=== PATIENT | male | born 1990 | race Two or more races ===

== ENCOUNTER 2018-04-28 18:28 | Inpatient (IN) | payer SELFPAY ==
[~2018-04-28] VITALS: Ht 170.2 cm; Wt 51.4 kg
[2018-04-28] MEDS ORDERED: ONDANSETRON PF 4 MG/2 ML VIAL. IV ONE (19:30)
[2018-04-28] MEDS ORDERED: DEXAMETHASONE SOD PHOS 20 MG/5 ML VIAL. IV ONE (19:30)
[2018-04-28] MEDS ORDERED: FAMOTIDINE 20 MG/2 ML VIAL IVP ONE (19:30)
[2018-04-28] MEDS ORDERED: KETOROLAC 30 MG/ML VIAL. IV ONE (19:30)
[2018-04-28 19:39] LABS: BASO % 0 % (0-3); EOS % 0 % (0-3); HEMOGLOBIN 14.9 g/dL (13.0-17.5); LYMPH # 1.9 x10^3/uL (1.0-4.8); LYMPH % 14 % (24-48); MEAN CORPUSCULAR HEMOGLOBIN 28 pg (25-35); MEAN CORPUSCULAR HGB CONC 34 g/dL (31-37); MEAN CORPUSCULAR VOLUME 83 fL (79-100); MONO # 1.2 x10^3/uL (0.0-1.1); MONO % 9 % (0-9); NEUT # 10.2 x10^3uL (1.8-7.7); NEUT % 77 % (31-73); PLATELET COUNT 208 x10^3/uL (140-400); RED BLOOD COUNT 5.32 x10^6/uL (4.30-5.70); RED CELL DISTRIBUTION WIDTH 12.6 % (11.5-14.5); WHITE BLOOD COUNT 13.3 x10^3/uL (4.0-11.0)
[2018-04-28 19:49] LABS: CALCIUM 9.5 mg/dL (8.5-10.1); CREATININE 1.3 mg/dL (0.7-1.3); GFR 67.3; POTASSIUM 3.4 mmol/L (3.5-5.1)
[2018-04-28 19:54] LABS: ALBUMIN 4.8 g/dL (3.4-5.0); ALBUMIN/GLOBULIN RATIO 1.2 (1.0-1.7); MAGNESIUM 2.3 mg/dL (1.8-2.4); TOTAL BILIRUBIN 1.3 mg/dL (0.2-1.0); TOTAL PROTEIN 8.9 g/dL (6.4-8.2)
[2018-04-28] MEDS ORDERED: IOHEXOL 300 MG/ML 100ML VIAL. IV ONE (20:15)
[2018-04-28] MEDS ORDERED: CONTRAST GIVEN. MC PRN (20:15)
[2018-04-28 20:34] LABS: BILIRUBIN,URINE SMALL (NEG); CLARITY,URINE TURBID; COLOR,URINE AMBER; NITRITE,URINE NEGATIVE (NEG); PH,URINE 6.5; PROTEIN,URINE 30 mg/dL (NEG-TRACE)
[2018-04-28 20:48] LABS: AMORPHOUS SEDIMENT,UR PRESENT /HPF; BACTERIA,URINE FEW /HPF (0-FEW); HYALINE CASTS, URINE OCCASIONAL /HPF; RBC,URINE 0 /HPF (0-2); SQUAMOUS EPITHELIAL CELL,UR OCC /LPF
--- NOTE | 2018-04-28 21:49 | RAD ---
Examination: CT HEAD WO CONTRAST History: headache, prior sent Comparison/Correlation: 03/11/2012 CT head without contrast Findings: Axial images of the head were obtained without contrast. The topograms unremarkable. Ventricles are normal size. No intracranial hemorrhage, shift, or mass effect. Globes and optic nerves are unremarkable. Visualized paranasal sinuses are unremarkable. Deformity of the right mastoid air cells is noted and may be developmental. Soft tissue gas at the posterior maxillofacial region about the pharynx is notable. 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 No intracranial hemorrhage. On 04/28/2018 at 9:45 PM, results reported to Dr. Delatorre of the emergency Department. Electronically signed by: Taz Majano MD (04/28/2018 9:46 PM) [facility]
--- NOTE | 2018-04-28 21:49 | RAD ---
Examination: CT ABD PELV W/ IV CONTRST ONLY History: epigastric pain with vomiting x1day, Omni 300 75ml
no priors Comparison/Correlation: None Findings: Axial images of the abdomen and pelvis were obtained following 75 cc Omnipaque 300 IV. Sagittal and coronal reformatted images were provided. Minimal gas in the posterior right pericardium appear to be present. Minimal gas involving the posterior pleural spaces appear to be present as well. Interstitial thickening about the mediastinum at the basilar aspect anteriorly noted. Minimal gas is noted involving the right lateral pleural space on a few consecutive images. Liver, spleen, pancreas, and adrenal glands are normal. Kidneys are unremarkable. Appendix is normal no bowel obstruction. Moderate quantity of stool in the colon. Urinary bladder is mostly decompressed. Bony structures are unremarkable. Minimal mesenteric fat is noted. Inferior vena cava is somewhat decompressed. Impression: Minimal pneumo mediastinum and very minimal bilateral pneumothoraces. 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 Consider CT chest for more complete assessment. On 04/28/2018 at 9:45 PM, results discussed with Dr. Delatorre of the emergency Department. Electronically signed by: Taz Majano MD (04/28/2018 9:45 PM) [facility]
--- NOTE | 2018-04-28 23:07 | RAD ---
CT chest without contrast HISTORY: Vomiting and epigastric pain Axial helical images of the chest were obtained without contrast. There is moderate pneumomediastinum. There are tiny pneumothoraces bilaterally. There is moderate chest wall subcutaneous emphysema on the left and there is subcutaneous M0 bilaterally the neck. The lungs are otherwise clear. There is no lymphadenopathy. IMPRESSION: Moderate pneumomediastinum and tiny bilateral pneumothoraces. PQRS Compliance Statement: One or more of the following individualized dose reduction techniques were utilized for this examination: 1. Automated exposure control 2. Adjustment of the mA and/or kV according to patient size 3. Use of iterative reconstruction technique Electronically signed by: Fredrick Alfaro III, MD (04/28/2018 11:03 PM) [facility]
--- NOTE | 2018-04-28 23:41 | PHYS DOC ---
Past Medical History Past Medical History: No Pertinent History Past Surgical History: No Surgical History Alcohol Use: Occasionally Drug Use: None Adult General Chief Complaint Chief Complaint: NAUSEA/VOMITING/DIARRHA HPI HPI Patient is a 27 year old [f__sex] who presents with [] Review of Systems Review of Systems Constitutional: Denies fever or chills [] Eyes: Denies change in visual acuity, redness, or eye pain [] HENT: Denies nasal congestion or sore throat [] Respiratory: Denies cough or shortness of breath [] Cardiovascular: No additional information not addressed in HPI [] GI: Denies abdominal pain, nausea, vomiting, bloody stools or diarrhea [] : Denies dysuria or hematuria [] Musculoskeletal: Denies back pain or joint pain [] Integument: Denies rash or skin lesions [] Neurologic: Denies headache, focal weakness or sensory changes [] Endocrine: Denies polyuria or polydipsia [] All other systems were reviewed and found to be within normal limits, except as documented in this note. Current Medications Current Medications Current Medications Medications (Trade) Dose Ordered Sig/Juanis Start Time Stop Time Status Last Admin Dose Admin Dexamethasone Sodium Phosphate (Decadron) 10 mg 1X ONCE 04/28/18 19:30 04/28/18 19:31 DC 04/28/18 19:36 10 MG Famotidine (Pepcid Vial) 20 mg 1X ONCE 04/28/18 19:30 04/28/18 19:31 DC 04/28/18 19:38 20 MG Info (CONTRAST GIVEN -- Rx MONITORING) 1 each PRN DAILY PRN 04/28/18 20:15 04/30/18 20:14 Iohexol (Omnipaque 300 Mg/ml) 75 ml 1X ONCE 04/28/18 20:15 04/28/18 20:16 DC 04/28/18 20:15 75 ML Ketorolac Tromethamine (Toradol 30mg Vial) 15 mg 1X ONCE 04/28/18 19:30 04/28/18 19:31 DC 04/28/18 19:36 15 MG Ondansetron HCl (Zofran) 4 mg 1X ONCE 04/28/18 19:30 04/28/18 19:31 DC 04/28/18 19:33 4 MG Allergies Allergies Allergies Coded Allergies Type Severity Reaction Last Updated Verified No Known Drug Allergies 04/28/18 No Physical Exam Physical Exam Constitutional: Well developed, well nourished, no acute distress, non-toxic appearance. [] HENT: Normocephalic, atraumatic, bilateral external ears normal, oropharynx moist, no oral exudates, nose normal. [] Eyes: PERRLA, EOMI, conjunctiva normal, no discharge. [] Neck: Normal range of motion, no tenderness, supple, no stridor. [] Cardiovascular:Heart rate regular rhythm, no murmur [] Lungs & Thorax: Bilateral breath sounds clear to auscultation [] Abdomen: Bowel sounds normal, soft, no tenderness, no masses, no pulsatile masses. [] Skin: Warm, dry, no erythema, no rash. [] Back: No tenderness, no CVA tenderness. [] Extremities: No tenderness, no cyanosis, no clubbing, ROM intact, no edema. [] Neurologic: Alert and oriented X 3, normal motor function, normal sensory function, no focal deficits noted. [] Psychologic: Affect normal, judgement normal, mood normal. [] Current Patient Data Vital Signs Vital Signs Date Time Temp Pulse Resp B/P (MAP) Pulse Ox O2 Delivery O2 Flow Rate FiO2 04/28/18 19:02 126/90 (102) 04/28/18 18:35 98.2 83 17 100 Room Air 98.2 Lab Values Laboratory Tests Test 04/28/18 18:54 04/28/18 20:23 White Blood Count 13.3 x10^3/uL (4.0-11.0) H Red Blood Count 5.32 x10^6/uL (4.30-5.70) Hemoglobin 14.9 g/dL (13.0-17.5) Hematocrit 44.0 % (39.0-53.0) Mean Corpuscular Volume 83 fL (79-100) Mean Corpuscular Hemoglobin 28 pg (25-35) Mean Corpuscular Hemoglobin Concent 34 g/dL (31-37) Red Cell Distribution Width 12.6 % (11.5-14.5) Platelet Count 208 x10^3/uL (140-400) Neutrophils (%) (Auto) 77 % (31-73) H Lymphocytes (%) (Auto) 14 % (24-48) L Monocytes (%) (Auto) 9 % (0-9) Eosinophils (%) (Auto) 0 % (0-3) Basophils (%) (Auto) 0 % (0-3) Neutrophils # (Auto) 10.2 x10^3uL (1.8-7.7) H Lymphocytes # (Auto) 1.9 x10^3/uL (1.0-4.8) Monocytes # (Auto) 1.2 x10^3/uL (0.0-1.1) H Eosinophils # (Auto) 0.0 x10^3/uL (0.0-0.7) Basophils # (Auto) 0.0 x10^3/uL (0.0-0.2) Sodium Level 130 mmol/L (136-145) L Potassium Level 3.4 mmol/L (3.5-5.1) L Chloride Level 93 mmol/L (98-107) L Carbon Dioxide Level 25 mmol/L (21-32) Anion Gap 12 (6-14) Blood Urea Nitrogen 23 mg/dL (8-26) Creatinine 1.3 mg/dL (0.7-1.3) Estimated GFR (Cockcroft-Gault) 67.3 BUN/Creatinine Ratio 18 (6-20) Glucose Level 156 mg/dL (70-99) H Calcium Level 9.5 mg/dL (8.5-10.1) Magnesium Level 2.3 mg/dL (1.8-2.4) Total Bilirubin 1.3 mg/dL (0.2-1.0) H Aspartate Amino Transferase (AST) 68 U/L (15-37) H Alanine Aminotransferase (ALT) 38 U/L (16-63) Alkaline Phosphatase 74 U/L (46-116) Total Protein 8.9 g/dL (6.4-8.2) H Albumin 4.8 g/dL (3.4-5.0) Albumin/Globulin Ratio 1.2 (1.0-1.7) Lipase 95 U/L (73-393) Urine Collection Type Void Urine Color Marie Urine Clarity Turbid Urine pH 6.5 Urine Specific [place] 1.020 Urine Protein 30 mg/dL (NEG-TRACE) Urine Glucose (UA) Negative mg/dL (NEG) Urine Ketones (Stick) Negative mg/dL (NEG) Urine Blood Trace (NEG) Urine Nitrite Negative (NEG) Urine Bilirubin Small (NEG) Urine Urobilinogen Dipstick 2.0 mg/dL (0.2 mg/dL) Urine Leukocyte Esterase Trace (NEG) Urine RBC 0 /HPF (0-2) Urine WBC 1-4 /HPF (0-4) Urine Squamous Epithelial Cells Occ /LPF Urine Amorphous Sediment Present /HPF Urine Bacteria Few /HPF (0-FEW) Urine Hyaline Casts Occasional /HPF Urine Mucus Slight /LPF Laboratory Tests 04/28/18 18:54 Laboratory Tests 04/28/18 18:54 EKG EKG [] Radiology/Procedures Radiology/Procedures [] Course & Med Decision Making Course & Med Decision Making Pertinent Labs and Imaging studies reviewed. (See chart for details) [] Dragon Disclaimer Dragon Disclaimer This electronic medical record was generated, in whole or in part, using a voice recognition dictation system. Departure Departure Impression: Primary Impression: Pneumomediastinum Additional Impressions: Headache Nausea and vomiting Disposition: ADMITTED INPATIENT Admitting Physician: Betty Razo Condition: GUARDED Referrals: NO PCP (PCP) Problem Qualifiers Additional Impressions: Headache Headache type: unspecified Headache chronicity pattern: unspecified pattern Intractability: intractable Qualified Codes: R51 - Headache Nausea and vomiting Vomiting type: unspecified Vomiting Intractability: unspecified Qualified Codes: R11.2 - Nausea with vomiting, unspecified EASTON REYES DO Apr 28, 2018 23:41
[2018-04-28] MEDS ORDERED: fentaNYL PF VIAL 100 MCG/2 ML VIAL IV PRN (23:45)
[2018-04-28] MEDS ORDERED: ONDANSETRON PF 4 MG/2 ML VIAL. IV PRN (23:45)
[2018-04-29] VITALS (7 sets, daily range): BP systolic 104–117; BP diastolic 68–85
[2018-04-29] MEDS ORDERED: PIPERACILLIN/TAZOBACTAM 4.5 GM in IV NORMAL SALINE 100ML 100 ML IV ONE (00:30)
--- NOTE | 2018-04-29 01:54 | EKG ---
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
[2018-04-29] MEDS ORDERED: IOHEXOL 300 MG/ML 100ML VIAL. PR ONE (08:00)
[2018-04-29] MEDS ORDERED: CONTRAST GIVEN. MC PRN (08:15)
--- NOTE | 2018-04-29 08:31 | PDOC2 ---
CONSULT Date of Consult Date of Consult DATE: 04/29/18 TIME: 08:22 Reason for Consult Reason for Consult: Pneumomediastinum Referring Physician Referring Physician: ER Identification/Chief Complaint Chief Complaint Vomiting Source Source: Chart review, Patient History of Present Illness Reason for Visit: Patient is a 27 year old male, who presents with nausea/vomiting. CT abdo in the ER showed pneumomediastinum, which was confirmed on subsequent CT chest. There is no pleural effusion. He denies any pain or SOB. He is normotensive and in SR 70s. Past Medical History Cardiovascular: No pertinent hx Pulmonary: No pertinent hx Heme/Onc: No pertinent hx Hepatobiliary: No pertinent hx Psych: No pertinent hx Rheumatologic: No pertinent hx Infectious disease: No pertinent hx ENT: No pertinent hx Endocrine: No pertinent hx Dermatology: No pertinent hx Past Surgical History Past Surgical History: No pertinent history Family History Family History: No Significant Social History No ALCOHOL: none Lives: with Family Current Problem List Problem List Problems Medical Problems: (1) Headache Status: Acute (2) Nausea and vomiting Status: Acute (3) Pneumomediastinum Status: Acute Current Medications Current Medications Current Medications Ondansetron HCl (Zofran) 4 mg 1X ONCE IV Last administered on 04/28/18at 19:33 ; Start 04/28/18 at 19:30; Stop 04/28/18 at 19:31; Status DC Famotidine (Pepcid Vial) 20 mg 1X ONCE IVP Last administered on 04/28/18at 19: 38; Start 04/28/18 at 19:30; Stop 04/28/18 at 19:31; Status DC Ketorolac Tromethamine (Toradol 30mg Vial) 15 mg 1X ONCE IV Last administered on 04/28/18at 19:36; Start 04/28/18 at 19:30; Stop 04/28/18 at 19:31; Status DC Dexamethasone Sodium Phosphate (Decadron) 10 mg 1X ONCE IV Last administered on 04/28/18at 19:36; Start 04/28/18 at 19:30; Stop 04/28/18 at 19:31; Status DC Iohexol (Omnipaque 300 Mg/ml) 75 ml 1X ONCE IV Last administered on at 20:15; Start 04/28/18 at 20:15; Stop 04/28/18 at 20:16; Status DC Info (CONTRAST GIVEN -- Rx MONITORING) 1 each PRN DAILY PRN MC SEE COMMENTS; Start 04/28/18 at 20:15; Stop 04/30/18 at 20:14 Ondansetron HCl (Zofran) 4 mg PRN Q8HRS PRN IV NAUSEA/VOMITING 1ST CHOICE; Start 04/28/18 at 23:45; Stop 04/29/18 at 23:44 Fentanyl Citrate (Fentanyl 2ml Vial) 50 mcg PRN Q2HR PRN IV SEVERE PAIN Last administered on 04/29/18at 00:56; Start 04/28/18 at 23:45; Stop 04/29/18 at 23 :44 Piperacillin Sod/ Tazobactam Sod 4.5 gm/Sodium Chloride 100 ml @ 200 mls/hr 1X ONCE IV Last administered on 04/29/18at 00:34; Start 04/29/18 at 00:30; Stop 04/29/18 at 00:59; Status DC Influenza Virus Vaccine (Afluria Trivalent [id number] Syringe) 0.5 ml ONCE ONCE VAX IM ; Start 04/29/18 at 09:00; Stop 04/29/18 at 09:01 Iohexol (Omnipaque 300 Mg/ml) 700 ml 1X ONCE VT ; Start 04/29/18 at 08:00; Stop 04/29/18 at 08:03; Status DC Info (CONTRAST GIVEN -- Rx MONITORING) 1 each PRN DAILY PRN MC SEE COMMENTS; Start 04/29/18 at 08:15; Stop 05/01/18 at 08:14 Allergies Allergies: Coded Allergies: No Known Drug Allergies (Unverified , 04/28/18) ROS General: No: Chills, Night Sweats, Fatigue, Malaise, Appetite PSYCHOLOGICAL ROS: No: Anxiety, Behavioral Disorder, Concentration difficultie , Decreased libido, Depression, Disorientation, Hallucinations, Hostility, Irritablity, Memory difficulties, Mood Swings, Obsessive thoughts, Physical abuse, Sexual abuse, Sleep disturbances, Suicidal ideation Eyes: No Blurry vision, No Decreased vision, No Double vision, No Dry eyes, No Excessive tearing, No Eye Pain, No Itchy Eyes, No Loss of vision, No Photophobia , No Scotomata, No Uses contacts, No Uses glasses HEENT: No: Heacaches, Visual Changes, Hearing change, Nasal congestion, Nasal discharge, Oral lesions, Sinus pain, Sore Throat, Epistaxis, Sneezing, Snoring, Tinnitus, Vertigo, Vocal changes ALLERGY AND IMMUNOLOGY: No: Hives, Insect Bite Sensitivity, Itchy/Watery Eyes, Nasal Congestion, Post Nasal Drip, Seasonal Allergies Hematological and Lymphatic: No: Bleeding Problems, Blood Clots, Blood Transfusions, Brusing, Night Sweats, Pallor, Swollen Lymph Nodes ENDOCRINE: No: Breast Changes, Galactorrhea, Hair Pattern Changes, Hot Flashes , Malaise/lethargy, Mood Swings, Palpitations, Polydipsia/polyuria, Skin Changes , Temperature Intolerance, Unexpected Weight Changes Breast: Other Respiratory: No: Cough, Hemoptysis, Orthopnea, Pleuritic Pain, Shortness of breath, SOB with excertion, Sputum Changes, Stridor, Tachypnea, Wheezing Cardiovascular: No Chest Pain, No Palpitations, No Orthopnea, No Paroxysmal Noc. Dyspnea, No Edema, No Lt Headedness Gastrointestinal: Yes Nausea, Yes Vomiting, Yes Diarrhea; No Abdominal Pain, No Constipation, No Melena, No Hematochezia Genitourinary: No Dysuria, No Frequency, No Incontinence, No Hematuria, No Retention, No Discharge, No Urgency, No Pain, No Flank Pain Musculoskeletal: No Gait Disturbance, No Joint Pain, No Joint Stiffness, No Joint Swelling, No Muscle Pain, No Muscular Weakness, No Pain In:, No Swelling In: Neurological: No Behavorial Changes, No Bowel/Bladder ControlChng, No Confusion , No Dizziness, No Gait Disturbance, No Headaches, No Impaired Coord/balance, No Memory Loss, No Numbness/Tingling, No Seizures, No Speech Problems, No Tremors, No Visual Changes, No Weakness Skin: No Dry Skin, No Eczema, No Hair Changes, No Lumps, No Mole Changes, No Mottling, No Nail Changes, No Pruritus, No Rash, No Skin Lesion Changes, No Acne Physical Exam General: Alert, Oriented X3, No acute distress HEENT: Atraumatic, PERRLA Lungs: Clear to auscultation Heart: Regular rate, Normal S1, Normal S2 Abdomen: Soft, No tenderness Extremities: No edema Skin: No significant lesion Neuro: Normal gait, Normal speech, Strength at 5/5 X4 ext, Normal tone, Sensation intact, Cranial nerves 3-12 NL, Reflexes 2+ Psych/Mental Status: Mental status NL MUSCULOSKELETAL: No deformity Vitals VITALS Vital Signs Date Time Temp Pulse Resp B/P (MAP) Pulse Ox O2 Delivery O2 Flow Rate FiO2 04/29/18 07:00 98.4 91 18 112/71 (85) 96 Room Air 98.4 Labs Labs Laboratory Tests Test 04/28/18 18:54 04/28/18 20:23 04/29/18 03:10 White Blood Count 13.3 x10^3/uL (4.0-11.0) Red Blood Count 5.32 x10^6/uL (4.30-5.70) Hemoglobin 14.9 g/dL (13.0-17.5) Hematocrit 44.0 % (39.0-53.0) Mean Corpuscular Volume 83 fL (79-100) Mean Corpuscular Hemoglobin 28 pg (25-35) Mean Corpuscular Hemoglobin Concent 34 g/dL (31-37) Red Cell Distribution Width 12.6 % (11.5-14.5) Platelet Count 208 x10^3/uL (140-400) Neutrophils (%) (Auto) 77 % (31-73) Lymphocytes (%) (Auto) 14 % (24-48) Monocytes (%) (Auto) 9 % (0-9) Eosinophils (%) (Auto) 0 % (0-3) Basophils (%) (Auto) 0 % (0-3) Neutrophils # (Auto) 10.2 x10^3uL (1.8-7.7) Lymphocytes # (Auto) 1.9 x10^3/uL (1.0-4.8) Monocytes # (Auto) 1.2 x10^3/uL (0.0-1.1) Eosinophils # (Auto) 0.0 x10^3/uL (0.0-0.7) Basophils # (Auto) 0.0 x10^3/uL (0.0-0.2) Sodium Level 130 mmol/L (136-145) Potassium Level 3.4 mmol/L (3.5-5.1) Chloride Level 93 mmol/L (98-107) Carbon Dioxide Level 25 mmol/L (21-32) Anion Gap 12 (6-14) Blood Urea Nitrogen 23 mg/dL (8-26) Creatinine 1.3 mg/dL (0.7-1.3) Estimated GFR (Cockcroft-Gault) 67.3 BUN/Creatinine Ratio 18 (6-20) Glucose Level 156 mg/dL (70-99) Calcium Level 9.5 mg/dL (8.5-10.1) Magnesium Level 2.3 mg/dL (1.8-2.4) Total Bilirubin 1.3 mg/dL (0.2-1.0) Aspartate Amino Transf (AST/SGOT) 68 U/L (15-37) Alanine Aminotransferase (ALT/SGPT) 38 U/L (16-63) Alkaline Phosphatase 74 U/L (46-116) Total Protein 8.9 g/dL (6.4-8.2) Albumin 4.8 g/dL (3.4-5.0) Albumin/Globulin Ratio 1.2 (1.0-1.7) Lipase 95 U/L (73-393) Urine Collection Type Void Urine Color Marie Urine Clarity Turbid Urine pH 6.5 Urine Specific [place] 1.020 Urine Protein 30 mg/dL (NEG-TRACE) Urine Glucose (UA) Negative mg/dL (NEG) Urine Ketones (Stick) Negative mg/dL (NEG) Urine Blood Trace (NEG) Urine Nitrite Negative (NEG) Urine Bilirubin Small (NEG) Urine Urobilinogen Dipstick 2.0 mg/dL (0.2 mg/dL) Urine Leukocyte Esterase Trace (NEG) Urine RBC 0 /HPF (0-2) Urine WBC 1-4 /HPF (0-4) Urine Squamous Epithelial Cells Occ /LPF Urine Amorphous Sediment Present /HPF Urine Bacteria Few /HPF (0-FEW) Urine Hyaline Casts Occasional /HPF Urine Mucus Slight /LPF Troponin I Quantitative < 0.017 ng/mL (0.000-0.055) Laboratory Tests Test 04/28/18 18:54 04/28/18 20:23 04/29/18 03:10 White Blood Count 13.3 x10^3/uL (4.0-11.0) Red Blood Count 5.32 x10^6/uL (4.30-5.70) Hemoglobin 14.9 g/dL (13.0-17.5) Hematocrit 44.0 % (39.0-53.0) Mean Corpuscular Volume 83 fL (79-100) Mean Corpuscular Hemoglobin 28 pg (25-35) Mean Corpuscular Hemoglobin Concent 34 g/dL (31-37) Red Cell Distribution Width 12.6 % (11.5-14.5) Platelet Count 208 x10^3/uL (140-400) Neutrophils (%) (Auto) 77 % (31-73) Lymphocytes (%) (Auto) 14 % (24-48) Monocytes (%) (Auto) 9 % (0-9) Eosinophils (%) (Auto) 0 % (0-3) Basophils (%) (Auto) 0 % (0-3) Neutrophils # (Auto) 10.2 x10^3uL (1.8-7.7) Lymphocytes # (Auto) 1.9 x10^3/uL (1.0-4.8) Monocytes # (Auto) 1.2 x10^3/uL (0.0-1.1) Eosinophils # (Auto) 0.0 x10^3/uL (0.0-0.7) Basophils # (Auto) 0.0 x10^3/uL (0.0-0.2) Sodium Level 130 mmol/L (136-145) Potassium Level 3.4 mmol/L (3.5-5.1) Chloride Level 93 mmol/L (98-107) Carbon Dioxide Level 25 mmol/L (21-32) Anion Gap 12 (6-14) Blood Urea Nitrogen 23 mg/dL (8-26) Creatinine 1.3 mg/dL (0.7-1.3) Estimated GFR (Cockcroft-Gault) 67.3 BUN/Creatinine Ratio 18 (6-20) Glucose Level 156 mg/dL (70-99) Calcium Level 9.5 mg/dL (8.5-10.1) Magnesium Level 2.3 mg/dL (1.8-2.4) Total Bilirubin 1.3 mg/dL (0.2-1.0) Aspartate Amino Transf (AST/SGOT) 68 U/L (15-37) Alanine Aminotransferase (ALT/SGPT) 38 U/L (16-63) Alkaline Phosphatase 74 U/L (46-116) Total Protein 8.9 g/dL (6.4-8.2) Albumin 4.8 g/dL (3.4-5.0) Albumin/Globulin Ratio 1.2 (1.0-1.7) Lipase 95 U/L (73-393) Urine Collection Type Void Urine Color Marie Urine Clarity Turbid Urine pH 6.5 Urine Specific [place] 1.020 Urine Protein 30 mg/dL (NEG-TRACE) Urine Glucose (UA) Negative mg/dL (NEG) Urine Ketones (Stick) Negative mg/dL (NEG) Urine Blood Trace (NEG) Urine Nitrite Negative (NEG) Urine Bilirubin Small (NEG) Urine Urobilinogen Dipstick 2.0 mg/dL (0.2 mg/dL) Urine Leukocyte Esterase Trace (NEG) Urine RBC 0 /HPF (0-2) Urine WBC 1-4 /HPF (0-4) Urine Squamous Epithelial Cells Occ /LPF Urine Amorphous Sediment Present /HPF Urine Bacteria Few /HPF (0-FEW) Urine Hyaline Casts Occasional /HPF Urine Mucus Slight /LPF Troponin I Quantitative < 0.017 ng/mL (0.000-0.055) Assessment/Plan Assessment/Plan Patient is a 27 year old male, who presents with nausea/vomiting. CT abdo in the ER showed pneumomediastinum, which was confirmed on subsequent CT chest. There are no pleural effusions. He denies any pain or SOB. He is normotensive and in SR 70s. Likely contained esophageal microperforation, given lack of pleural effusions and systemic symptoms. Needs esophagram If esophagram is negative for leak, start clears for 2 days, then advance to soft diet for another week IV abx (zosyn). Would send home with po antibiotics for a week If he tolerates clears, OK to d/c home either tonight or tomorrow EVGENY CADENA MD Apr 29, 2018 08:31
[2018-04-29] MEDS: PIPERACILLIN/TAZOBACTAM 4.5 GM in IV NORMAL SALINE 100ML 100 ML IV SCH ×3 (08:46→17:58)
[2018-04-29] MEDS: IV NORMAL SALINE 1000ML BAG 1,000 ML IV SCH ×2 (08:46→17:58)
--- NOTE | 2018-04-29 09:27 | PDOC1 ---
History and Physical Date of Admission Date of Admission DATE: 04/29/18 TIME: 09:25 Identification/Chief Complaint Chief Complaint 27 yr old male seen in ER with nausea and vomiting, ct c/w pneumomediastinum, esophagram suggested by CTS hE IS FROM [facility], Mother understands some montserratian., states he is not losing much weight, had emesis x 2 days will order HIV, IV FLUID SUPPORT, Mortality rate is high without treatment Past Medical History Past Medical History Past Medical History Cardiovascular: No pertinent hx Pulmonary: No pertinent hx Heme/Onc: No pertinent hx Hepatobiliary: No pertinent hx Psych: No pertinent hx Rheumatologic: No pertinent hx Infectious disease: No pertinent hx ENT: No pertinent hx Endocrine: No pertinent hx Dermatology: No pertinent hx Past Surgical History Past Surgical History: No pertinent history Family History Family History: No Significant Social History No ALCOHOL: none Lives: with Family Cardiovascular: No pertinent hx Pulmonary: No pertinent hx Heme/Onc: No pertinent hx Hepatobiliary: No pertinent hx Psych: No pertinent hx Rheumatologic: No pertinent hx Infectious disease: No pertinent hx ENT: No pertinent hx Endocrine: No pertinent hx Dermatology: No pertinent hx Past Surgical History Past Surgical History: No pertinent history Family History Family History: No Significant Social History Smoke: No ALCOHOL: none Drugs: None Current Problem List Problem List Problems Medical Problems: (1) Headache Status: Acute (2) Nausea and vomiting Status: Acute (3) Pneumomediastinum Status: Acute Current Medications Current Medications Current Medications Ondansetron HCl (Zofran) 4 mg 1X ONCE IV Last administered on 04/28/18at 19:33 ; Start 04/28/18 at 19:30; Stop 04/28/18 at 19:31; Status DC Famotidine (Pepcid Vial) 20 mg 1X ONCE IVP Last administered on 04/28/18at 19: 38; Start 04/28/18 at 19:30; Stop 04/28/18 at 19:31; Status DC Ketorolac Tromethamine (Toradol 30mg Vial) 15 mg 1X ONCE IV Last administered on 04/28/18at 19:36; Start 04/28/18 at 19:30; Stop 04/28/18 at 19:31; Status DC Dexamethasone Sodium Phosphate (Decadron) 10 mg 1X ONCE IV Last administered on 04/28/18at 19:36; Start 04/28/18 at 19:30; Stop 04/28/18 at 19:31; Status DC Iohexol (Omnipaque 300 Mg/ml) 75 ml 1X ONCE IV Last administered on at 20:15; Start 04/28/18 at 20:15; Stop 04/28/18 at 20:16; Status DC Info (CONTRAST GIVEN -- Rx MONITORING) 1 each PRN DAILY PRN MC SEE COMMENTS; Start 04/28/18 at 20:15; Stop 04/30/18 at 20:14 Ondansetron HCl (Zofran) 4 mg PRN Q8HRS PRN IV NAUSEA/VOMITING 1ST CHOICE; Start 04/28/18 at 23:45; Stop 04/29/18 at 23:44 Fentanyl Citrate (Fentanyl 2ml Vial) 50 mcg PRN Q2HR PRN IV SEVERE PAIN Last administered on 04/29/18at 00:56; Start 04/28/18 at 23:45; Stop 04/29/18 at 23 :44 Piperacillin Sod/ Tazobactam Sod 4.5 gm/Sodium Chloride 100 ml @ 200 mls/hr 1X ONCE IV Last administered on 04/29/18at 00:34; Start 04/29/18 at 00:30; Stop 04/29/18 at 00:59; Status DC Influenza Virus Vaccine (Afluria Trivalent [id number] Syringe) 0.5 ml ONCE ONCE VAX IM ; Start 04/29/18 at 09:00; Stop 04/29/18 at 09:01; Status DC Iohexol (Omnipaque 300 Mg/ml) 700 ml 1X ONCE ID ; Start 04/29/18 at 08:00; Stop 04/29/18 at 08:03; Status DC Info (CONTRAST GIVEN -- Rx MONITORING) 1 each PRN DAILY PRN MC SEE COMMENTS; Start 04/29/18 at 08:15; Stop 05/01/18 at 08:14 Sodium Chloride 1,000 ml @ 100 mls/hr Q10H IV Last administered on 04/29/18at 08:46; Start 04/29/18 at 09:00 Piperacillin Sod/ Tazobactam Sod 4.5 gm/Sodium Chloride 100 ml @ 200 mls/hr Q6HRS IV Last administered on 04/29/18at 08:46; Start 04/29/18 at 09:00 Allergies Allergies: Coded Allergies: No Known Drug Allergies (Unverified , 04/28/18) ROS Review of System Review of Systems Review of Systems Constitutional: Denies fever or chills [] looks very thin Eyes: Denies change in visual acuity, redness, or eye pain [] HENT: Denies nasal congestion or sore throat [] Respiratory: Denies cough or shortness of breath [] Cardiovascular: No additional information not addressed in HPI [] GI: Denies abdominal pain, nausea, vomiting, bloody stools or diarrhea [] : Denies dysuria or hematuria [] Musculoskeletal: Denies back pain or joint pain [] Integument: Denies rash or skin lesions [] Neurologic: Denies headache, focal weakness or sensory changes [] Endocrine: Denies polyuria or polydipsia [] 14 pt systems were reviewed and found to be within normal limits, except as documented General: YES: Fatigue Skin: No Dry Skin, No Eczema, No Hair Changes, No Lumps, No Mole Changes, No Mottling, No Nail Changes, No Pruritus, No Rash, No Skin Lesion Changes, No Other, No Acne Physical Exam Physical Exam Physical Exam Physical Exam Constitutional: Well developed, well nourished, no acute distress, non-toxic appearance. [] HENT: Normocephalic, atraumatic, bilateral external ears normal, oropharynx moist, no oral exudates, nose normal. [] Eyes: PERRLA, EOMI, conjunctiva normal, no discharge. [] Neck: Normal range of motion, no tenderness, supple, no stridor. [] Cardiovascular:Heart rate regular rhythm, no murmur [] Lungs & Thorax: Bilateral breath sounds clear to auscultation [] Abdomen: Bowel sounds normal, soft, no tenderness, no masses, no pulsatile masses. [] Skin: Warm, dry, no erythema, no rash. [] Back: No tenderness, no CVA tenderness. [] Extremities: No tenderness, no cyanosis, no clubbing, ROM intact, no edema. [] Neurologic: Alert and oriented X 3, normal motor function, normal sensory function, no focal deficits noted. [] Psychologic: Affect normal, judgement normal, mood normal. [] General: Alert, Oriented X3, Cooperative HEENT: PERRLA Lungs: Normal air movement Heart: S1S2, no murmurs Cardiovascular: S1, S2 Breasts: Not examined Abdomen: Soft Rectal Exam: not examined Extremities: No clubbing, No cyanosis, No edema Neuro: Normal speech, Cranial nerves 3-12 NL Psych/Mental Status: Mental status NL, Mood NL Vitals Vitals Vital Signs Date Time Temp Pulse Resp B/P (MAP) Pulse Ox O2 Delivery O2 Flow Rate FiO2 04/29/18 07:00 98.4 91 18 112/71 (85) 96 Room Air 98.4 Labs Labs Laboratory Tests Test 04/28/18 18:54 04/28/18 20:23 04/29/18 03:10 White Blood Count 13.3 x10^3/uL (4.0-11.0) Red Blood Count 5.32 x10^6/uL (4.30-5.70) Hemoglobin 14.9 g/dL (13.0-17.5) Hematocrit 44.0 % (39.0-53.0) Mean Corpuscular Volume 83 fL (79-100) Mean Corpuscular Hemoglobin 28 pg (25-35) Mean Corpuscular Hemoglobin Concent 34 g/dL (31-37) Red Cell Distribution Width 12.6 % (11.5-14.5) Platelet Count 208 x10^3/uL (140-400) Neutrophils (%) (Auto) 77 % (31-73) Lymphocytes (%) (Auto) 14 % (24-48) Monocytes (%) (Auto) 9 % (0-9) Eosinophils (%) (Auto) 0 % (0-3) Basophils (%) (Auto) 0 % (0-3) Neutrophils # (Auto) 10.2 x10^3uL (1.8-7.7) Lymphocytes # (Auto) 1.9 x10^3/uL (1.0-4.8) Monocytes # (Auto) 1.2 x10^3/uL (0.0-1.1) Eosinophils # (Auto) 0.0 x10^3/uL (0.0-0.7) Basophils # (Auto) 0.0 x10^3/uL (0.0-0.2) Sodium Level 130 mmol/L (136-145) Potassium Level 3.4 mmol/L (3.5-5.1) Chloride Level 93 mmol/L (98-107) Carbon Dioxide Level 25 mmol/L (21-32) Anion Gap 12 (6-14) Blood Urea Nitrogen 23 mg/dL (8-26) Creatinine 1.3 mg/dL (0.7-1.3) Estimated GFR (Cockcroft-Gault) 67.3 BUN/Creatinine Ratio 18 (6-20) Glucose Level 156 mg/dL (70-99) Calcium Level 9.5 mg/dL (8.5-10.1) Magnesium Level 2.3 mg/dL (1.8-2.4) Total Bilirubin 1.3 mg/dL (0.2-1.0) Aspartate Amino Transf (AST/SGOT) 68 U/L (15-37) Alanine Aminotransferase (ALT/SGPT) 38 U/L (16-63) Alkaline Phosphatase 74 U/L (46-116) Total Protein 8.9 g/dL (6.4-8.2) Albumin 4.8 g/dL (3.4-5.0) Albumin/Globulin Ratio 1.2 (1.0-1.7) Lipase 95 U/L (73-393) Urine Collection Type Void Urine Color Marie Urine Clarity Turbid Urine pH 6.5 Urine Specific [place] 1.020 Urine Protein 30 mg/dL (NEG-TRACE) Urine Glucose (UA) Negative mg/dL (NEG) Urine Ketones (Stick) Negative mg/dL (NEG) Urine Blood Trace (NEG) Urine Nitrite Negative (NEG) Urine Bilirubin Small (NEG) Urine Urobilinogen Dipstick 2.0 mg/dL (0.2 mg/dL) Urine Leukocyte Esterase Trace (NEG) Urine RBC 0 /HPF (0-2) Urine WBC 1-4 /HPF (0-4) Urine Squamous Epithelial Cells Occ /LPF Urine Amorphous Sediment Present /HPF Urine Bacteria Few /HPF (0-FEW) Urine Hyaline Casts Occasional /HPF Urine Mucus Slight /LPF Troponin I Quantitative < 0.017 ng/mL (0.000-0.055) Laboratory Tests Test 04/28/18 18:54 04/28/18 20:23 04/29/18 03:10 White Blood Count 13.3 x10^3/uL (4.0-11.0) Red Blood Count 5.32 x10^6/uL (4.30-5.70) Hemoglobin 14.9 g/dL (13.0-17.5) Hematocrit 44.0 % (39.0-53.0) Mean Corpuscular Volume 83 fL (79-100) Mean Corpuscular Hemoglobin 28 pg (25-35) Mean Corpuscular Hemoglobin Concent 34 g/dL (31-37) Red Cell Distribution Width 12.6 % (11.5-14.5) Platelet Count 208 x10^3/uL (140-400) Neutrophils (%) (Auto) 77 % (31-73) Lymphocytes (%) (Auto) 14 % (24-48) Monocytes (%) (Auto) 9 % (0-9) Eosinophils (%) (Auto) 0 % (0-3) Basophils (%) (Auto) 0 % (0-3) Neutrophils # (Auto) 10.2 x10^3uL (1.8-7.7) Lymphocytes # (Auto) 1.9 x10^3/uL (1.0-4.8) Monocytes # (Auto) 1.2 x10^3/uL (0.0-1.1) Eosinophils # (Auto) 0.0 x10^3/uL (0.0-0.7) Basophils # (Auto) 0.0 x10^3/uL (0.0-0.2) Sodium Level 130 mmol/L (136-145) Potassium Level 3.4 mmol/L (3.5-5.1) Chloride Level 93 mmol/L (98-107) Carbon Dioxide Level 25 mmol/L (21-32) Anion Gap 12 (6-14) Blood Urea Nitrogen 23 mg/dL (8-26) Creatinine 1.3 mg/dL (0.7-1.3) Estimated GFR (Cockcroft-Gault) 67.3 BUN/Creatinine Ratio 18 (6-20) Glucose Level 156 mg/dL (70-99) Calcium Level 9.5 mg/dL (8.5-10.1) Magnesium Level 2.3 mg/dL (1.8-2.4) Total Bilirubin 1.3 mg/dL (0.2-1.0) Aspartate Amino Transf (AST/SGOT) 68 U/L (15-37) Alanine Aminotransferase (ALT/SGPT) 38 U/L (16-63) Alkaline Phosphatase 74 U/L (46-116) Total Protein 8.9 g/dL (6.4-8.2) Albumin 4.8 g/dL (3.4-5.0) Albumin/Globulin Ratio 1.2 (1.0-1.7) Lipase 95 U/L (73-393) Urine Collection Type Void Urine Color Marie Urine Clarity Turbid Urine pH 6.5 Urine Specific [place] 1.020 Urine Protein 30 mg/dL (NEG-TRACE) Urine Glucose (UA) Negative mg/dL (NEG) Urine Ketones (Stick) Negative mg/dL (NEG) Urine Blood Trace (NEG) Urine Nitrite Negative (NEG) Urine Bilirubin Small (NEG) Urine Urobilinogen Dipstick 2.0 mg/dL (0.2 mg/dL) Urine Leukocyte Esterase Trace (NEG) Urine RBC 0 /HPF (0-2) Urine WBC 1-4 /HPF (0-4) Urine Squamous Epithelial Cells Occ /LPF Urine Amorphous Sediment Present /HPF Urine Bacteria Few /HPF (0-FEW) Urine Hyaline Casts Occasional /HPF Urine Mucus Slight /LPF Troponin I Quantitative < 0.017 ng/mL (0.000-0.055) Images Images CT chest without contrast HISTORY: Vomiting and epigastric pain Axial helical images of the chest were obtained without contrast. There is moderate pneumomediastinum. There are tiny pneumothoraces bilaterally. There is moderate chest wall subcutaneous emphysema on the left and there is subcutaneous M0 bilaterally the neck. The lungs are otherwise clear. There is no lymphadenopathy. IMPRESSION: Moderate pneumomediastinum and tiny bilateral pneumothoraces. PQRS Compliance Statement: REASON: upper abdominal pain PROCEDURE: CT ABD PELV W/ IV CONTRST ONLY Examination: CT ABD PELV W/ IV CONTRST ONLY History: epigastric pain with vomiting x1day, Omni 300 75ml
no priors Comparison/Correlation: None Findings: Axial images of the abdomen and pelvis were obtained following 75 cc Omnipaque 300 IV. Sagittal and coronal reformatted images were provided. Minimal gas in the posterior right pericardium appear to be present. Minimal gas involving the posterior pleural spaces appear to be present as well. Interstitial thickening about the mediastinum at the basilar aspect anteriorly noted. Minimal gas is noted involving the right lateral pleural space on a few consecutive images. Liver, spleen, pancreas, and adrenal glands are normal. Kidneys are unremarkable. Appendix is normal no bowel obstruction. Moderate quantity of stool in the colon. Urinary bladder is mostly decompressed. Bony structures are unremarkable. Minimal mesenteric fat is noted. Inferior vena cava is somewhat decompressed. Impression: Minimal pneumo mediastinum and very minimal bilateral pneumothoraces. 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 Consider CT chest for more complete assessment. On 04/28/2018 at 9:45 PM, results discussed with Dr. Delatorre of the emergency Department. VTE Prophylaxis Ordered VTE Prophylaxis Devices: Yes VTE Pharmacological Prophylaxi: Contraindicated Assessment/Plan Assessment/Plan impression 1. Boerhaave syndrome with history of vomiting 2. Moderate pneumomediastinum small bilateral pneumothoraces 3. MILD hyponatremia plan cts following cvc admit icu care esophagram if ok with GI If esophagram is negative for leak, clears for 2 days, then advance to soft diet for another week IV abx (zosyn). CONT gi consult if stable home with po antibiotics for a week scd's iv protonix HIV PULM Consult iv fluid support am lytes iv zofran q 4 hrs prn 30 min cc time ANTONIO SALCEDO MD Apr 29, 2018 09:27
[2018-04-29] MEDS ORDERED: IOHEXOL 300 MG/ML 100ML VIAL. PO ONE ×2 (09:30→13:45)
[2018-04-29] MEDS ORDERED: BARIUM SULFATE 60% 355 ML SUSP PO ONE (09:30)
--- NOTE | 2018-04-29 10:12 | PDOC2 ---
GI CONSULT Reason For Consult: possible Boerhaave's HPI: HPI: 27 y/o Maryjane male, translation from family at bedside. Acute onset of vomiting and significant retching yesterday, denies coughing. Associated upper abd pain. Imaging noted w/ moderate pneumomediastinum and tiny bilateral pneumothoraces concerning for Boerhaave syndrome. CTS following, esophagram ordered. Started on IV PPI. PMH: PMH: denies Social History: Smoke: No ALCOHOL: none Drugs: None ROS: GEN: Denies fevers, chills, sweats HEENT: Denies blurred vision, sore throat CV: Denies chest pain RESP: Denies shortness of air, cough GI: Per HPI : Denies hematuria, dysuria ENDO: Denies weight changes NEURO: Denies confusion, dizziness MSK: Denies weakness, joint pain/swelling SKIN: Denies jaundice, pruritus Vitals: Vitals: Vital Signs Date Time Temp Pulse Resp B/P (MAP) Pulse Ox O2 Delivery O2 Flow Rate FiO2 04/29/18 07:00 98.4 91 18 112/71 (85) 96 Room Air 98.4 Labs: Labs: Laboratory Tests Test 04/28/18 18:54 04/28/18 20:23 04/29/18 03:10 White Blood Count 13.3 x10^3/uL (4.0-11.0) Red Blood Count 5.32 x10^6/uL (4.30-5.70) Hemoglobin 14.9 g/dL (13.0-17.5) Hematocrit 44.0 % (39.0-53.0) Mean Corpuscular Volume 83 fL (79-100) Mean Corpuscular Hemoglobin 28 pg (25-35) Mean Corpuscular Hemoglobin Concent 34 g/dL (31-37) Red Cell Distribution Width 12.6 % (11.5-14.5) Platelet Count 208 x10^3/uL (140-400) Neutrophils (%) (Auto) 77 % (31-73) Lymphocytes (%) (Auto) 14 % (24-48) Monocytes (%) (Auto) 9 % (0-9) Eosinophils (%) (Auto) 0 % (0-3) Basophils (%) (Auto) 0 % (0-3) Neutrophils # (Auto) 10.2 x10^3uL (1.8-7.7) Lymphocytes # (Auto) 1.9 x10^3/uL (1.0-4.8) Monocytes # (Auto) 1.2 x10^3/uL (0.0-1.1) Eosinophils # (Auto) 0.0 x10^3/uL (0.0-0.7) Basophils # (Auto) 0.0 x10^3/uL (0.0-0.2) Sodium Level 130 mmol/L (136-145) Potassium Level 3.4 mmol/L (3.5-5.1) Chloride Level 93 mmol/L (98-107) Carbon Dioxide Level 25 mmol/L (21-32) Anion Gap 12 (6-14) Blood Urea Nitrogen 23 mg/dL (8-26) Creatinine 1.3 mg/dL (0.7-1.3) Estimated GFR (Cockcroft-Gault) 67.3 BUN/Creatinine Ratio 18 (6-20) Glucose Level 156 mg/dL (70-99) Calcium Level 9.5 mg/dL (8.5-10.1) Magnesium Level 2.3 mg/dL (1.8-2.4) Total Bilirubin 1.3 mg/dL (0.2-1.0) Aspartate Amino Transf (AST/SGOT) 68 U/L (15-37) Alanine Aminotransferase (ALT/SGPT) 38 U/L (16-63) Alkaline Phosphatase 74 U/L (46-116) Total Protein 8.9 g/dL (6.4-8.2) Albumin 4.8 g/dL (3.4-5.0) Albumin/Globulin Ratio 1.2 (1.0-1.7) Lipase 95 U/L (73-393) Urine Collection Type Void Urine Color Marie Urine Clarity Turbid Urine pH 6.5 Urine Specific [place] 1.020 Urine Protein 30 mg/dL (NEG-TRACE) Urine Glucose (UA) Negative mg/dL (NEG) Urine Ketones (Stick) Negative mg/dL (NEG) Urine Blood Trace (NEG) Urine Nitrite Negative (NEG) Urine Bilirubin Small (NEG) Urine Urobilinogen Dipstick 2.0 mg/dL (0.2 mg/dL) Urine Leukocyte Esterase Trace (NEG) Urine RBC 0 /HPF (0-2) Urine WBC 1-4 /HPF (0-4) Urine Squamous Epithelial Cells Occ /LPF Urine Amorphous Sediment Present /HPF Urine Bacteria Few /HPF (0-FEW) Urine Hyaline Casts Occasional /HPF Urine Mucus Slight /LPF Troponin I Quantitative < 0.017 ng/mL (0.000-0.055) Allergies: Coded Allergies: No Known Drug Allergies (Unverified , 04/28/18) Medications: Current Medications Medications (Trade) Dose Ordered Sig/Juanis Route PRN Reason Start Time Stop Time Status Last Admin Dose Admin Ondansetron HCl (Zofran) 4 mg 1X ONCE IV 04/28/18 19:30 04/28/18 19:31 DC 04/28/18 19:33 Famotidine (Pepcid Vial) 20 mg 1X ONCE IVP 04/28/18 19:30 04/28/18 19:31 DC 04/28/18 19:38 Ketorolac Tromethamine (Toradol 30mg Vial) 15 mg 1X ONCE IV 04/28/18 19:30 04/28/18 19:31 DC 04/28/18 19:36 Dexamethasone Sodium Phosphate (Decadron) 10 mg 1X ONCE IV 04/28/18 19:30 04/28/18 19:31 DC 04/28/18 19:36 Iohexol (Omnipaque 300 Mg/ml) 75 ml 1X ONCE IV 04/28/18 20:15 04/28/18 20:16 DC 04/28/18 20:15 Fentanyl Citrate (Fentanyl 2ml Vial) 50 mcg PRN Q2HR PRN IV SEVERE PAIN 04/28/18 23:45 04/29/18 23:44 04/29/18 00:56 Piperacillin Sod/ Tazobactam Sod 4.5 gm/Sodium Chloride 100 ml @ 200 mls/hr 1X ONCE IV 04/29/18 00:30 04/29/18 00:59 DC 04/29/18 00:34 Sodium Chloride 1,000 ml @ 100 mls/hr Q10H IV 04/29/18 09:00 04/29/18 08:46 Piperacillin Sod/ Tazobactam Sod 4.5 gm/Sodium Chloride 100 ml @ 200 mls/hr Q6HRS IV 04/29/18 09:00 04/29/18 08:46 Imaging: Imaging: Head CT Impression: Soft tissue gas at the posterior maxillofacial region presumably representing Boerhaave syndrome. No intracranial hemorrhage. CT Chest IMPRESSION: Moderate pneumomediastinum and tiny bilateral pneumothoraces. CT A/P Impression: Minimal pneumo mediastinum and very minimal bilateral pneumothoraces. 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 PE: GEN: NAD HEENT: Atraumatic, PERRL LUNGS: CTAB HEART: RRR ABD: NABS, S/ND, upper abd tenderness EXTREMITY: No edema SKIN: No rashes, no jaundice NEURO/PSYCH: A & O 3 A/P: A/P: Vomiting/retching ?Boerhaave syndrome - abnormal CTs w/ moderate pneumomediastinum and tiny bilateral pneumothoraces -- Await esophagram. TATY LIPSCOMB Apr 29, 2018 10:12
[2018-04-29] MEDS: PANTOPRAZOLE IV PUSH 40 MG VIAL. IVP SCH (11:06)
--- NOTE | 2018-04-29 11:33 | RAD ---
Indication: Pneumomediastinum. TECHNIQUE: Attempted esophagram with water-soluble contrast with total fluoroscopy time of 0.5 minutes and 3 images. COMPARISON: CT chest from 04/28/2018 FINDINGS: Nondiagnostic exam secondary to patient uncooperation and/or inability to ingest contrast material. Contrast was spit out multiple times by the patient. The initial images demonstrate pneumomediastinum. IMPRESSION: Attempted and aborted esophagram due to patient uncooperation. Electronically signed by: Charlie Roger DO (04/29/2018 11:30 AM) [facility]
--- NOTE | 2018-04-29 12:16 | CONS ---
DATE OF CONSULTATION: PULMONARY CONSULTATION ATTENDING PHYSICIAN: Dr. Razo. REASON FOR CONSULTATION: Pneumomediastinum and pneumothorax. HISTORY OF PRESENT ILLNESS: The patient is a 27-year-old male from [facility]. Does not speak Colombian. He presented to the hospital after episodes of vomiting. One of the family members does speak little Colombian and states that he has not eaten for last 1 week. He underwent imaging study and a CT chest was reviewed by me and it shows tiny bilateral apical pneumothoraces and moderate pneumomediastinum. No significant pleural effusion is seen. There was subcutaneous emphysema on the left and in the neck. Boerhaave syndrome was suspected and GI has been consulted. The patient was unable to do the barium swallow. His CT head revealed no intracranial hemorrhage, but some soft tissue gas, presumably representing Boerhaave. PAST MEDICAL HISTORY: History of tobacco use. PAST SURGICAL HISTORY: None. ALLERGIES: None. MEDICATIONS: Reviewed. SOCIAL HISTORY: Smoker for 10 years plus. PHYSICAL EXAMINATION: GENERAL: He is in no obvious respiratory distress and on room air. VITAL SIGNS: Reviewed, stable, afebrile. NECK: Supple. He has some crepitus in the neck as well as in the left upper chest. RESPIRATORY: Slightly decreased breath sounds bilaterally. CARDIOVASCULAR: Regular rhythm. ABDOMEN: Soft. EXTREMITIES: With no pitting edema. LABORATORY DATA: Reviewed. White cell count 13.3, sodium 130. IMPRESSION: Bilateral tiny apical pneumothorax and moderate pneumomediastinum. Likely source is esophageal perforation/Boerhaave syndrome. RECOMMENDATIONS: 1. Continue observation. He does not need any intervention for tiny pneumothorax. 2. Barium swallow will be repeated. 3. Follow GI recommendation. 4. Discuss with the family. CLARA MEI MD DR: DESTINI/lilliana JOB#: [id number] / [id number] [facility]LA[place]
--- NOTE | 2018-04-29 14:40 | RAD ---
Indication: Second time attempted esophagram for pneumomediastinum. TECHNIQUE: Attempted esophagram for second time with 0.3 minutes of fluoroscopy time and 5 images. Patient had a hard time following instructions. Patient did take one small sip of the water-soluble contrast was was not enough to evaluate integrity of esophagus. Attempts were made to persuade the patient to drink more contrast however patient did not comply. COMPARISON: Study done the same day earlier. Findings/ impression: Attempted esophagram without success secondary to lack of patient cooperation which may be secondary to language barrier. Electronically signed by: Charlie Roger DO (04/29/2018 2:37 PM) [facility]
[2018-04-30 03:00] VITALS: BP 97/59
[2018-04-30] MEDS: PIPERACILLIN/TAZOBACTAM 4.5 GM in IV NORMAL SALINE 100ML 100 ML IV SCH ×4 (06:07→12:14)
[2018-04-30 06:29] LABS: BASO % 0 % (0-3); EOS % 0 % (0-3); HEMATOCRIT 32.6 % (39.0-53.0); HEMOGLOBIN 11.2 g/dL (13.0-17.5); LYMPH # 2.6 x10^3/uL (1.0-4.8); LYMPH % 31 % (24-48); MEAN CORPUSCULAR HEMOGLOBIN 29 pg (25-35); MEAN CORPUSCULAR HGB CONC 35 g/dL (31-37); MEAN CORPUSCULAR VOLUME 83 fL (79-100); MONO # 0.6 x10^3/uL (0.0-1.1); MONO % 8 % (0-9); NEUT # 5.3 x10^3uL (1.8-7.7); NEUT % 62 % (31-73); PLATELET COUNT 145 x10^3/uL (140-400); RED BLOOD COUNT 3.92 x10^6/uL (4.30-5.70); RED CELL DISTRIBUTION WIDTH 12.8 % (11.5-14.5); WHITE BLOOD COUNT 8.6 x10^3/uL (4.0-11.0)
[2018-04-30 07:00] VITALS: BP 95/56
[2018-04-30 07:00] LABS: ALBUMIN 3.2 g/dL (3.4-5.0); CALCIUM 8.3 mg/dL (8.5-10.1); CREATININE 1.1 mg/dL (0.7-1.3); GFR 80.9; TOTAL BILIRUBIN 0.9 mg/dL (0.2-1.0); TOTAL PROTEIN 6.3 g/dL (6.4-8.2)
[2018-04-30 07:01] LABS: POTASSIUM 2.9 mmol/L (3.5-5.1)
--- NOTE | 2018-04-30 07:59 | RAD ---
Single view of the chest. 04/30/2018 8:00 AM Indication: PNEUMOTHORAX Comparison: CT chest April 28, 2018 FINDINGS: There is a very small left apical pneumothorax. Subcutaneous emphysema in the bilateral neck and left upper chest is again seen. Component of residual pneumomediastinum appears to be present. Trace right apical pneumothorax may be present. Heart size remains normal. No acute osseous changes are noted in the interim. IMPRESSION: 1. Small left apical pneumothorax. Possible trace right apical pneumothorax. Pneumomediastinum. Findings are similar but appear decreased with respect to comparison CT exam. 2. Subcutaneous emphysema as described Electronically signed by: Yuri Reich MD (04/30/2018 7:56 AM) [id number]
[2018-04-30] MEDS ORDERED: IOHEXOL 240 MG/ML 50ML VIAL. PO ONE (08:15)
[2018-04-30] MEDS ORDERED: IOHEXOL 300 MG/ML 100ML VIAL. IV ONE (08:15)
[2018-04-30] MEDS ORDERED: CONTRAST GIVEN. MC PRN (08:15)
[2018-04-30] MEDS: PANTOPRAZOLE IV PUSH 40 MG VIAL. IVP SCH (08:20)
[2018-04-30] MEDS: IV NORMAL SALINE 1000ML BAG 1,000 ML IV SCH (08:20)
[2018-04-30] MEDS ORDERED: POTASSIUM CHLORIDE 40 MEQ in IV NORMAL SALINE 500ML BAG 500 ML IV ONE (08:30)
[2018-04-30 11:00] VITALS: BP 98/61
--- NOTE | 2018-04-30 12:09 | PDOC ---
Progress Note Subjective Subjective Spoke to patient via an head irrigator. Patient simply will not co-operate or follow any medical advice / instructions. Refused an esophagram. Has been eating , apparently swallowed an apple this morning. He denies any dysphagia or pain. He is normotensive and in NSR in 60s. ROS ROS No nausea No vomiting No pain No rash Vital Sign Vital Signs Vital Signs Date Time Temp Pulse Resp B/P (MAP) Pulse Ox O2 Delivery O2 Flow Rate FiO2 04/30/18 11:00 98.7 64 16 98/61 (73) 99 Room Air 98.7 Physical Exam PHYSICAL EXAM GENERAL: NAD, Alert HEENT: PERRL, OC/OP NECK: Supple, no JVD, no LN LUNGS: Clear HEART: S1S2, no gallop, no murmur ABD: Soft, NT, no organomegaly, no rebound EXT: No edema, no cyanosis WELLNESS RN: Alert, oriented x 3, no focal neurologic deficit SKIN: No rash IV: ok Labs Lab Laboratory Tests Test 04/30/18 06:05 White Blood Count 8.6 x10^3/uL (4.0-11.0) Red Blood Count 3.92 x10^6/uL (4.30-5.70) Hemoglobin 11.2 g/dL (13.0-17.5) Hematocrit 32.6 % (39.0-53.0) Mean Corpuscular Volume 83 fL (79-100) Mean Corpuscular Hemoglobin 29 pg (25-35) Mean Corpuscular Hemoglobin Concent 35 g/dL (31-37) Red Cell Distribution Width 12.8 % (11.5-14.5) Platelet Count 145 x10^3/uL (140-400) Neutrophils (%) (Auto) 62 % (31-73) Lymphocytes (%) (Auto) 31 % (24-48) Monocytes (%) (Auto) 8 % (0-9) Eosinophils (%) (Auto) 0 % (0-3) Basophils (%) (Auto) 0 % (0-3) Neutrophils # (Auto) 5.3 x10^3uL (1.8-7.7) Lymphocytes # (Auto) 2.6 x10^3/uL (1.0-4.8) Monocytes # (Auto) 0.6 x10^3/uL (0.0-1.1) Eosinophils # (Auto) 0.0 x10^3/uL (0.0-0.7) Basophils # (Auto) 0.0 x10^3/uL (0.0-0.2) Sodium Level 138 mmol/L (136-145) Potassium Level 2.9 mmol/L (3.5-5.1) Chloride Level 104 mmol/L (98-107) Carbon Dioxide Level 25 mmol/L (21-32) Anion Gap 9 (6-14) Blood Urea Nitrogen 20 mg/dL (8-26) Creatinine 1.1 mg/dL (0.7-1.3) Estimated GFR (Cockcroft-Gault) 80.9 BUN/Creatinine Ratio 18 (6-20) Glucose Level 113 mg/dL (70-99) Calcium Level 8.3 mg/dL (8.5-10.1) Total Bilirubin 0.9 mg/dL (0.2-1.0) Aspartate Amino Transf (AST/SGOT) 36 U/L (15-37) Alanine Aminotransferase (ALT/SGPT) 35 U/L (16-63) Alkaline Phosphatase 44 U/L (46-116) Total Protein 6.3 g/dL (6.4-8.2) Albumin 3.2 g/dL (3.4-5.0) Albumin/Globulin Ratio 1.0 (1.0-1.7) Objective Assessment 27 year old male, presented with nausea and emesis, found to have pneumomediastinum on CT. Likely contained esophageal microperforation. Spoke to patient via an head irrigator. Patient simply will not co-operate or follow any medical advice / instructions. Refused an esophagram. Has been eating , apparently swallowed an apple this morning. He denies any dysphagia or pain. He is normotensive and in NSR in 60s. Based on clinical status, patient does not have a leaking esophageal perforation Plan Plan of Care D/c home today Advised to stay on soft diet for 1 week, although I don't think the patient will follow any medical advice Would also give him a week's course of po antibiotics Nutrition Consultation Dietary Evaluation: Recommendations by RD: Increase Calorie Intake Comments: REC advance diet as able per , GI to regular REC PPN for short-term nutrition needs if unable to advance diet within 24-48 hrs Expected Outcomes/Goals: diet advancement Malnutrition Findings: Food and Nutrition Intake (Mod: <75% est energy req 7days Weight Status: Underweight EVGENY CADENA MD Apr 30, 2018 12:09
--- NOTE | 2018-04-30 12:35 | PDOC ---
Subjective: Subjective: Limited history, help from family member who speaks limited Greenlandic - denies pain, tolerating liquids. Objective: Objective: Reviewed other notes - remains uncooperative, ate an apple. ?contained esophageal microperf - okay w/ Dc on soft diet and atbx, suspect compliance will be an issue Vital Signs: Vital Signs Date Time Temp Pulse Resp B/P (MAP) Pulse Ox O2 Delivery O2 Flow Rate FiO2 04/30/18 11:00 98.7 64 16 98/61 (73) 99 Room Air 98.7 Labs: Laboratory Tests Test 04/30/18 06:05 White Blood Count 8.6 x10^3/uL Red Blood Count 3.92 x10^6/uL Hemoglobin 11.2 g/dL Hematocrit 32.6 % Mean Corpuscular Volume 83 fL Mean Corpuscular Hemoglobin 29 pg Mean Corpuscular Hemoglobin Concent 35 g/dL Red Cell Distribution Width 12.8 % Platelet Count 145 x10^3/uL Neutrophils (%) (Auto) 62 % Lymphocytes (%) (Auto) 31 % Monocytes (%) (Auto) 8 % Eosinophils (%) (Auto) 0 % Basophils (%) (Auto) 0 % Neutrophils # (Auto) 5.3 x10^3uL Lymphocytes # (Auto) 2.6 x10^3/uL Monocytes # (Auto) 0.6 x10^3/uL Eosinophils # (Auto) 0.0 x10^3/uL Basophils # (Auto) 0.0 x10^3/uL Sodium Level 138 mmol/L Potassium Level 2.9 mmol/L Chloride Level 104 mmol/L Carbon Dioxide Level 25 mmol/L Anion Gap 9 Blood Urea Nitrogen 20 mg/dL Creatinine 1.1 mg/dL Estimated GFR (Cockcroft-Gault) 80.9 BUN/Creatinine Ratio 18 Glucose Level 113 mg/dL Calcium Level 8.3 mg/dL Total Bilirubin 0.9 mg/dL Aspartate Amino Transf (AST/SGOT) 36 U/L Alanine Aminotransferase (ALT/SGPT) 35 U/L Alkaline Phosphatase 44 U/L Total Protein 6.3 g/dL Albumin 3.2 g/dL Albumin/Globulin Ratio 1.0 Imaging: CXR 04/30 IMPRESSION: 1. Small left apical pneumothorax. Possible trace right apical pneumothorax. Pneumomediastinum. Findings are similar but appear decreased with respect to comparison CT exam. 2. Subcutaneous emphysema as described PE: GEN: NAD LUNGS: clear HEART: RRR ABD: soft, non-tender NEURO/PSYCH: no eye contact A/P: Pneumomediastinum -- Non-compliant, added difficulty of communication barrier. DC per primary. TATY LIPSCOMB Apr 30, 2018 12:35
--- NOTE | 2018-04-30 13:03 | RAD ---
CT of the chest with contrast, 04/30/2018: HISTORY: Possible esophageal tear, Boerhaave syndrome Multidetector CT imaging was performed following an IV bolus injection of iodinated contrast material. Comparison is made to a study from 04/28/2018. There is moderate pneumomediastinum. This is most prominent in the upper mediastinum extending into the neck. The abnormal gas collections extend into the upper chest wall, more so on the left. Similar findings were present on the previous study. A small amount of pericardial air is present. There tiny bilateral pneumothoraces over the pulmonary apices. These were present on the previous study and are stable to slightly decreased in size. No mediastinal mass or abnormal fluid collection is seen. The thoracic aorta is unremarkable. Evaluation of the lung parenchyma is partially compromised by patient motion artifact. No pulmonary consolidation or mass is seen. No pleural fluid is evident. No free air is evident in the abdomen. IMPRESSION: 1. Stable pneumomediastinum with subcutaneous emphysema in the neck and chest wall. 2. Small bilateral pneumothoraces have decreased slightly in size. 3. No CT evidence of mediastinal abscess, empyema or significant pulmonary infiltrate. Electronically signed by: Tian Patterson MD (04/30/2018 12:59 PM) [facility]
--- NOTE | 2018-04-30 14:15 | PDOC ---
PROGRESS NOTES History of Present Illness History of Present Illness Assessment/Plan Assessment/Plan impression 1. Boerhaave syndrome with history of vomiting 2. Moderate pneumomediastinum small bilateral pneumothoraces 3. MILD hyponatremia plan cts following cvc admit icu care esophagram if ok with GI If esophagram is negative for leak, clears for 2 days, then advance to soft diet for another week IV abx (zosyn). D/C HOME ON CEFTIN 500MG PO BID X 10 DAYS gi consult if stable home with po antibiotics for a week scd's iv protonix HIV PULM Consult iv fluid support am lytes iv zofran q 4 hrs prn 30 min cc time Vitals Vitals Vital Signs Date Time Temp Pulse Resp B/P (MAP) Pulse Ox O2 Delivery O2 Flow Rate FiO2 04/30/18 11:00 98.7 64 16 98/61 (73) 99 Room Air 98.7 Physical Exam Physical Exam GENERAL: NAD, Alert HEENT: PERRL, OC/OP NECK: Supple, no JVD, no LN LUNGS: Clear HEART: S1S2, no gallop, no murmur ABD: Soft, NT, no organomegaly, no rebound EXT: No edema, no cyanosis HEEL SCOURER: Alert, oriented x 3, no focal neurologic deficit SKIN: No rash IV: ok General: Alert, Oriented X3, Cooperative Heart: Regular rate, Normal S1, Normal S2 Abdomen: Soft Extremities: No clubbing, No cyanosis, No edema Skin: No significant lesion Labs LABS CT of the chest with contrast, 04/30/2018: HISTORY: Possible esophageal tear, Boerhaave syndrome Multidetector CT imaging was performed following an IV bolus injection of iodinated contrast material. Comparison is made to a study from 04/28/2018. There is moderate pneumomediastinum. This is most prominent in the upper mediastinum extending into the neck. The abnormal gas collections extend into the upper chest wall, more so on the left. Similar findings were present on the previous study. A small amount of pericardial air is present. There tiny bilateral pneumothoraces over the pulmonary apices. These were present on the previous study and are stable to slightly decreased in size. No mediastinal mass or abnormal fluid collection is seen. The thoracic aorta is unremarkable. Evaluation of the lung parenchyma is partially compromised by patient motion artifact. No pulmonary consolidation or mass is seen. No pleural fluid is evident. No free air is evident in the abdomen. IMPRESSION: 1. Stable pneumomediastinum with subcutaneous emphysema in the neck and chest wall. 2. Small bilateral pneumothoraces have decreased slightly in size. 3. No CT evidence of mediastinal abscess, empyema or significant pulmonary infiltrate. Electronically signed by: Tian Patterson MD (04/30/2018 12:59 PM) [facility] Laboratory Tests Test 04/30/18 06:05 White Blood Count 8.6 x10^3/uL (4.0-11.0) Red Blood Count 3.92 x10^6/uL (4.30-5.70) Hemoglobin 11.2 g/dL (13.0-17.5) Hematocrit 32.6 % (39.0-53.0) Mean Corpuscular Volume 83 fL (79-100) Mean Corpuscular Hemoglobin 29 pg (25-35) Mean Corpuscular Hemoglobin Concent 35 g/dL (31-37) Red Cell Distribution Width 12.8 % (11.5-14.5) Platelet Count 145 x10^3/uL (140-400) Neutrophils (%) (Auto) 62 % (31-73) Lymphocytes (%) (Auto) 31 % (24-48) Monocytes (%) (Auto) 8 % (0-9) Eosinophils (%) (Auto) 0 % (0-3) Basophils (%) (Auto) 0 % (0-3) Neutrophils # (Auto) 5.3 x10^3uL (1.8-7.7) Lymphocytes # (Auto) 2.6 x10^3/uL (1.0-4.8) Monocytes # (Auto) 0.6 x10^3/uL (0.0-1.1) Eosinophils # (Auto) 0.0 x10^3/uL (0.0-0.7) Basophils # (Auto) 0.0 x10^3/uL (0.0-0.2) Sodium Level 138 mmol/L (136-145) Potassium Level 2.9 mmol/L (3.5-5.1) Chloride Level 104 mmol/L (98-107) Carbon Dioxide Level 25 mmol/L (21-32) Anion Gap 9 (6-14) Blood Urea Nitrogen 20 mg/dL (8-26) Creatinine 1.1 mg/dL (0.7-1.3) Estimated GFR (Cockcroft-Gault) 80.9 BUN/Creatinine Ratio 18 (6-20) Glucose Level 113 mg/dL (70-99) Calcium Level 8.3 mg/dL (8.5-10.1) Total Bilirubin 0.9 mg/dL (0.2-1.0) Aspartate Amino Transf (AST/SGOT) 36 U/L (15-37) Alanine Aminotransferase (ALT/SGPT) 35 U/L (16-63) Alkaline Phosphatase 44 U/L (46-116) Total Protein 6.3 g/dL (6.4-8.2) Albumin 3.2 g/dL (3.4-5.0) Albumin/Globulin Ratio 1.0 (1.0-1.7) Assessment and Plan Assessmemt and Plan Problems Medical Problems: (1) Headache Status: Acute (2) Nausea and vomiting Status: Acute (3) Pneumomediastinum Status: Acute Comment Review of Relevant I have reviewed the following items adrian (where applicable) has been applied. Labs Laboratory Tests Test 04/28/18 18:54 04/28/18 20:23 04/29/18 03:10 04/30/18 06:05 White Blood Count 13.3 x10^3/uL (4.0-11.0) 8.6 x10^3/uL (4.0-11.0) Red Blood Count 5.32 x10^6/uL (4.30-5.70) 3.92 x10^6/uL (4.30-5.70) Hemoglobin 14.9 g/dL (13.0-17.5) 11.2 g/dL (13.0-17.5) Hematocrit 44.0 % (39.0-53.0) 32.6 % (39.0-53.0) Mean Corpuscular Volume 83 fL (79-100) 83 fL (79-100) Mean Corpuscular Hemoglobin 28 pg (25-35) 29 pg (25-35) Mean Corpuscular Hemoglobin Concent 34 g/dL (31-37) 35 g/dL (31-37) Red Cell Distribution Width 12.6 % (11.5-14.5) 12.8 % (11.5-14.5) Platelet Count 208 x10^3/uL (140-400) 145 x10^3/uL (140-400) Neutrophils (%) (Auto) 77 % (31-73) 62 % (31-73) Lymphocytes (%) (Auto) 14 % (24-48) 31 % (24-48) Monocytes (%) (Auto) 9 % (0-9) 8 % (0-9) Eosinophils (%) (Auto) 0 % (0-3) 0 % (0-3) Basophils (%) (Auto) 0 % (0-3) 0 % (0-3) Neutrophils # (Auto) 10.2 x10^3uL (1.8-7.7) 5.3 x10^3uL (1.8-7.7) Lymphocytes # (Auto) 1.9 x10^3/uL (1.0-4.8) 2.6 x10^3/uL (1.0-4.8) Monocytes # (Auto) 1.2 x10^3/uL (0.0-1.1) 0.6 x10^3/uL (0.0-1.1) Eosinophils # (Auto) 0.0 x10^3/uL (0.0-0.7) 0.0 x10^3/uL (0.0-0.7) Basophils # (Auto) 0.0 x10^3/uL (0.0-0.2) 0.0 x10^3/uL (0.0-0.2) Sodium Level 130 mmol/L (136-145) 138 mmol/L (136-145) Potassium Level 3.4 mmol/L (3.5-5.1) 2.9 mmol/L (3.5-5.1) Chloride Level 93 mmol/L (98-107) 104 mmol/L (98-107) Carbon Dioxide Level 25 mmol/L (21-32) 25 mmol/L (21-32) Anion Gap 12 (6-14) 9 (6-14) Blood Urea Nitrogen 23 mg/dL (8-26) 20 mg/dL (8-26) Creatinine 1.3 mg/dL (0.7-1.3) 1.1 mg/dL (0.7-1.3) Estimated GFR (Cockcroft-Gault) 67.3 80.9 BUN/Creatinine Ratio 18 (6-20) 18 (6-20) Glucose Level 156 mg/dL (70-99) 113 mg/dL (70-99) Calcium Level 9.5 mg/dL (8.5-10.1) 8.3 mg/dL (8.5-10.1) Magnesium Level 2.3 mg/dL (1.8-2.4) Total Bilirubin 1.3 mg/dL (0.2-1.0) 0.9 mg/dL (0.2-1.0) Aspartate Amino Transf (AST/SGOT) 68 U/L (15-37) 36 U/L (15-37) Alanine Aminotransferase (ALT/SGPT) 38 U/L (16-63) 35 U/L (16-63) Alkaline Phosphatase 74 U/L (46-116) 44 U/L (46-116) Total Protein 8.9 g/dL (6.4-8.2) 6.3 g/dL (6.4-8.2) Albumin 4.8 g/dL (3.4-5.0) 3.2 g/dL (3.4-5.0) Albumin/Globulin Ratio 1.2 (1.0-1.7) 1.0 (1.0-1.7) Lipase 95 U/L (73-393) Urine Collection Type Void Urine Color Marie Urine Clarity Turbid Urine pH 6.5 Urine Specific [place] 1.020 Urine Protein 30 mg/dL (NEG-TRACE) Urine Glucose (UA) Negative mg/dL (NEG) Urine Ketones (Stick) Negative mg/dL (NEG) Urine Blood Trace (NEG) Urine Nitrite Negative (NEG) Urine Bilirubin Small (NEG) Urine Urobilinogen Dipstick 2.0 mg/dL (0.2 mg/dL) Urine Leukocyte Esterase Trace (NEG) Urine RBC 0 /HPF (0-2) Urine WBC 1-4 /HPF (0-4) Urine Squamous Epithelial Cells Occ /LPF Urine Amorphous Sediment Present /HPF Urine Bacteria Few /HPF (0-FEW) Urine Hyaline Casts Occasional /HPF Urine Mucus Slight /LPF Troponin I Quantitative < 0.017 ng/mL (0.000-0.055) HIV (1&2) Antibody Screen Nonreactive (Nonreactive) Laboratory Tests Test 04/30/18 06:05 White Blood Count 8.6 x10^3/uL (4.0-11.0) Red Blood Count 3.92 x10^6/uL (4.30-5.70) Hemoglobin 11.2 g/dL (13.0-17.5) Hematocrit 32.6 % (39.0-53.0) Mean Corpuscular Volume 83 fL (79-100) Mean Corpuscular Hemoglobin 29 pg (25-35) Mean Corpuscular Hemoglobin Concent 35 g/dL (31-37) Red Cell Distribution Width 12.8 % (11.5-14.5) Platelet Count 145 x10^3/uL (140-400) Neutrophils (%) (Auto) 62 % (31-73) Lymphocytes (%) (Auto) 31 % (24-48) Monocytes (%) (Auto) 8 % (0-9) Eosinophils (%) (Auto) 0 % (0-3) Basophils (%) (Auto) 0 % (0-3) Neutrophils # (Auto) 5.3 x10^3uL (1.8-7.7) Lymphocytes # (Auto) 2.6 x10^3/uL (1.0-4.8) Monocytes # (Auto) 0.6 x10^3/uL (0.0-1.1) Eosinophils # (Auto) 0.0 x10^3/uL (0.0-0.7) Basophils # (Auto) 0.0 x10^3/uL (0.0-0.2) Sodium Level 138 mmol/L (136-145) Potassium Level 2.9 mmol/L (3.5-5.1) Chloride Level 104 mmol/L (98-107) Carbon Dioxide Level 25 mmol/L (21-32) Anion Gap 9 (6-14) Blood Urea Nitrogen 20 mg/dL (8-26) Creatinine 1.1 mg/dL (0.7-1.3) Estimated GFR (Cockcroft-Gault) 80.9 BUN/Creatinine Ratio 18 (6-20) Glucose Level 113 mg/dL (70-99) Calcium Level 8.3 mg/dL (8.5-10.1) Total Bilirubin 0.9 mg/dL (0.2-1.0) Aspartate Amino Transf (AST/SGOT) 36 U/L (15-37) Alanine Aminotransferase (ALT/SGPT) 35 U/L (16-63) Alkaline Phosphatase 44 U/L (46-116) Total Protein 6.3 g/dL (6.4-8.2) Albumin 3.2 g/dL (3.4-5.0) Albumin/Globulin Ratio 1.0 (1.0-1.7) Medications Current Medications Ondansetron HCl (Zofran) 4 mg 1X ONCE IV Last administered on 04/28/18at 19:33 ; Start 04/28/18 at 19:30; Stop 04/28/18 at 19:31; Status DC Famotidine (Pepcid Vial) 20 mg 1X ONCE IVP Last administered on 04/28/18at 19: 38; Start 04/28/18 at 19:30; Stop 04/28/18 at 19:31; Status DC Ketorolac Tromethamine (Toradol 30mg Vial) 15 mg 1X ONCE IV Last administered on 04/28/18at 19:36; Start 04/28/18 at 19:30; Stop 04/28/18 at 19:31; Status DC Dexamethasone Sodium Phosphate (Decadron) 10 mg 1X ONCE IV Last administered on 04/28/18at 19:36; Start 04/28/18 at 19:30; Stop 04/28/18 at 19:31; Status DC Iohexol (Omnipaque 300 Mg/ml) 75 ml 1X ONCE IV Last administered on at 20:15; Start 04/28/18 at 20:15; Stop 04/28/18 at 20:16; Status DC Info (CONTRAST GIVEN -- Rx MONITORING) 1 each PRN DAILY PRN MC SEE COMMENTS; Start 04/28/18 at 20:15; Stop 04/30/18 at 20:14 Ondansetron HCl (Zofran) 4 mg PRN Q8HRS PRN IV NAUSEA/VOMITING 1ST CHOICE; Start 04/28/18 at 23:45; Stop 04/29/18 at 23:44; Status DC Fentanyl Citrate (Fentanyl 2ml Vial) 50 mcg PRN Q2HR PRN IV SEVERE PAIN Last administered on 04/29/18at 00:56; Start 04/28/18 at 23:45; Stop 04/29/18 at 23 :44; Status DC Piperacillin Sod/ Tazobactam Sod 4.5 gm/Sodium Chloride 100 ml @ 200 mls/hr 1X ONCE IV Last administered on 04/29/18at 00:34; Start 04/29/18 at 00:30; Stop 04/29/18 at 00:59; Status DC Influenza Virus Vaccine (Afluria Trivalent [id number] Syringe) 0.5 ml ONCE ONCE VAX IM Last administered on 04/30/18at 09:40; Start 04/29/18 at 09:00; Stop 04/29/18 at 09:01; Status DC Iohexol (Omnipaque 300 Mg/ml) 700 ml 1X ONCE NC Last administered on at 10:33; Start 04/29/18 at 08:00; Stop 04/29/18 at 08:03; Status DC Info (CONTRAST GIVEN -- Rx MONITORING) 1 each PRN DAILY PRN MC SEE COMMENTS; Start 04/29/18 at 08:15; Stop 05/01/18 at 08:14 Sodium Chloride 1,000 ml @ 100 mls/hr Q10H IV Last administered on 04/30/18at 08:20; Start 04/29/18 at 09:00 Piperacillin Sod/ Tazobactam Sod 4.5 gm/Sodium Chloride 100 ml @ 200 mls/hr Q6HRS IV Last administered on 04/30/18at 12:14; Start 04/29/18 at 09:00 Iohexol (Omnipaque 300 Mg/ml) 400 ml 1X ONCE PO Last administered on at 14:14; Start 04/29/18 at 09:30; Stop 04/29/18 at 09:41; Status DC Barium Sulfate (Liquid E-Z Paque) 355 ml 1X ONCE PO ; Start 04/29/18 at 09:30 ; Stop 04/29/18 at 09:41; Status DC Pantoprazole Sodium (PROTONIX VIAL for IV PUSH) 40 mg DAILYAC IVP Last administered on 04/30/18at 08:20; Start 04/29/18 at 10:30 Iohexol (Omnipaque 300 Mg/ml) 200 ml 1X ONCE PO ; Start 04/29/18 at 13:45; Stop 04/29/18 at 13:46; Status DC Potassium Chloride 40 meq/ Sodium Chloride 520 ml @ 130 mls/hr 1X ONCE IV Last administered on 04/30/18at 08:20; Start 04/30/18 at 08:30; Stop 04/30/18 at 12:29; Status DC Iohexol (Omnipaque 240 Mg/ml) 30 ml 1X ONCE PO Last administered on at 08:15; Start 04/30/18 at 08:15; Stop 04/30/18 at 08:16; Status DC Iohexol (Omnipaque 300 Mg/ml) 75 ml 1X ONCE IV Last administered on at 08:48; Start 04/30/18 at 08:15; Stop 04/30/18 at 08:16; Status DC Info (CONTRAST GIVEN -- Rx MONITORING) 1 each PRN DAILY PRN MC SEE COMMENTS; Start 04/30/18 at 08:15; Stop 05/02/18 at 08:14 Vitals/I & O Vital Sign - Last 24 Hours 04/29/18 04/29/18 04/29/18 04/29/18 14:41 19:00 20:00 23:00 Temp 97.8 98.2 98.8 97.8 98.2 98.8 Pulse 65 72 76 Resp 18 18 16 B/P (MAP) 104/68 (80) 112/71 (85) 111/69 (83) Pulse Ox 99 98 98 O2 Delivery Room Air Room Air 04/30/18 04/30/18 04/30/18 04/30/18 03:00 07:00 08:00 11:00 Temp 98.6 98.4 98.7 98.6 98.4 98.7 Pulse 60 63 64 Resp 19 16 16 B/P (MAP) 97/59 (72) 95/56 (69) 98/61 (73) Pulse Ox 94 98 99 O2 Delivery Room Air Room Air Intake and Output 04/29/18 04/29/18 04/30/18 15:01 23:01 07:01 Output Total 400 ml 0 ml Balance -400 ml 0 ml Nutrition Consultation Dietary Evaluation: Recommendations by RD: Increase Calorie Intake Comments: REC advance diet as able per MD GI to regular REC PPN for short-term nutrition needs if unable to advance diet within 24-48 hrs Expected Outcomes/Goals: diet advancement Malnutrition Findings: Food and Nutrition Intake (Mod: <75% est energy req 7days Weight Status: Underweight ANTONIO SALCEDO MD Apr 30, 2018 14:15
[2018-04-30] MEDS ORDERED: FAMO40TA57 PO (14:20)
[2018-04-30] MEDS ORDERED: CEFU500T46 PO (14:22)
--- NOTE | 2018-04-30 14:40 | PDOC3 ---
Discharge Summary Date of Admission: Apr 28, 2018 Date of Discharge: Apr 30, 2018 Follow-Up: 3-5 days Admitting Diagnosis comment: History of Present Illness History of Present Illness Assessment/Plan Assessment/Plan impression 1. Boerhaave syndrome with history of vomiting 2. Moderate pneumomediastinum small bilateral pneumothoraces 3. MILD hyponatremia 4. noncompliance with lab and testing AMA plan cts following cvc esophagram if ok with GI If esophagram is negative for leak, clears for 2 days, then advance to soft diet for another week D/C HOME ON CEFTIN 500MG PO BID X 10 DAYS gi consult NOTED if stable home with po antibiotics for a week scd's iv protonix HIV PULM Consult OK WITH D/C iv fluid support am lytes REFUSED AMA iv zofran q 4 hrs prn 30 min cc time Vitals Vitals Vital Signs Date Time Temp Pulse Resp B/P (MAP) Pulse Ox O2 Delivery O2 Flow Rate FiO2 04/30/18 11:00 98.7 64 16 98/61 (73) 99 Room Air 98.7 Physical Exam Physical Exam GENERAL: NAD, Alert HEENT: PERRL, OC/OP NECK: Supple, no JVD, no LN LUNGS: Clear HEART: S1S2, no gallop, no murmur ABD: Soft, NT, no organomegaly, no rebound EXT: No edema, no cyanosis [employer]: Alert, oriented x 3, no focal neurologic deficit SKIN: No rash IV: ok General: Alert, Oriented X3, Cooperative Heart: Regular rate, Normal S1, Normal S2 Abdomen: Soft Extremities: No clubbing, No cyanosis, No edema Skin: No significant lesion Labs LABS CT of the chest with contrast, 04/30/2018: HISTORY: Possible esophageal tear, Boerhaave syndrome Multidetector CT imaging was performed following an IV bolus injection of iodinated contrast material. Comparison is made to a study from 04/28/2018. There is moderate pneumomediastinum. This is most prominent in the upper mediastinum extending into the neck. The abnormal gas collections extend into the upper chest wall, more so on the left. Similar findings were present on the previous study. A small amount of pericardial air is present. There tiny bilateral pneumothoraces over the pulmonary apices. These were present on the previous study and are stable to slightly decreased in size. No mediastinal mass or abnormal fluid collection is seen. The thoracic aorta is unremarkable. Evaluation of the lung parenchyma is partially compromised by patient motion artifact. No pulmonary consolidation or mass is seen. No pleural fluid is evident. No free air is evident in the abdomen. IMPRESSION: 1. Stable pneumomediastinum with subcutaneous emphysema in the neck and chest wall. 2. Small bilateral pneumothoraces have decreased slightly in size. 3. No CT evidence of mediastinal abscess, empyema or significant pulmonary infiltrate. Electronically signed by: Tian Patterson MD (04/30/2018 12:59 PM) [facility] Laboratory Tests FINAL DIAGNOSIS Problems Medical Problems: (1) Headache Status: Acute (2) Nausea and vomiting Status: Acute (3) Pneumomediastinum Status: Acute Brief Hospital Course Mr. Morris is a 27 old [sex] who presented with [pneumomediastinum ] CONDITION AT DISCHARGE: Improved Discharge Medications Current Medications Ondansetron HCl (Zofran) 4 mg 1X ONCE IV Last administered on 04/28/18at 19:33 ; Start 04/28/18 at 19:30; Stop 04/28/18 at 19:31; Status DC Famotidine (Pepcid Vial) 20 mg 1X ONCE IVP Last administered on 04/28/18at 19: 38; Start 04/28/18 at 19:30; Stop 04/28/18 at 19:31; Status DC Ketorolac Tromethamine (Toradol 30mg Vial) 15 mg 1X ONCE IV Last administered on 04/28/18at 19:36; Start 04/28/18 at 19:30; Stop 04/28/18 at 19:31; Status DC Dexamethasone Sodium Phosphate (Decadron) 10 mg 1X ONCE IV Last administered on 04/28/18at 19:36; Start 04/28/18 at 19:30; Stop 04/28/18 at 19:31; Status DC Iohexol (Omnipaque 300 Mg/ml) 75 ml 1X ONCE IV Last administered on at 20:15; Start 04/28/18 at 20:15; Stop 04/28/18 at 20:16; Status DC Info (CONTRAST GIVEN -- Rx MONITORING) 1 each PRN DAILY PRN MC SEE COMMENTS; Start 04/28/18 at 20:15; Stop 04/30/18 at 20:14 Ondansetron HCl (Zofran) 4 mg PRN Q8HRS PRN IV NAUSEA/VOMITING 1ST CHOICE; Start 04/28/18 at 23:45; Stop 04/29/18 at 23:44; Status DC Fentanyl Citrate (Fentanyl 2ml Vial) 50 mcg PRN Q2HR PRN IV SEVERE PAIN Last administered on 04/29/18at 00:56; Start 04/28/18 at 23:45; Stop 04/29/18 at 23 :44; Status DC Piperacillin Sod/ Tazobactam Sod 4.5 gm/Sodium Chloride 100 ml @ 200 mls/hr 1X ONCE IV Last administered on 04/29/18at 00:34; Start 04/29/18 at 00:30; Stop 04/29/18 at 00:59; Status DC Influenza Virus Vaccine (Afluria Trivalent 2545-2404 Syringe) 0.5 ml ONCE ONCE VAX IM Last administered on 04/30/18at 09:40; Start 04/29/18 at 09:00; Stop 04/29/18 at 09:01; Status DC Iohexol (Omnipaque 300 Mg/ml) 700 ml 1X ONCE MN Last administered on at 10:33; Start 04/29/18 at 08:00; Stop 04/29/18 at 08:03; Status DC Info (CONTRAST GIVEN -- Rx MONITORING) 1 each PRN DAILY PRN MC SEE COMMENTS; Start 04/29/18 at 08:15; Stop 05/01/18 at 08:14 Sodium Chloride 1,000 ml @ 100 mls/hr Q10H IV Last administered on 04/30/18at 08:20; Start 04/29/18 at 09:00 Piperacillin Sod/ Tazobactam Sod 4.5 gm/Sodium Chloride 100 ml @ 200 mls/hr Q6HRS IV Last administered on 04/30/18at 12:14; Start 04/29/18 at 09:00 Iohexol (Omnipaque 300 Mg/ml) 400 ml 1X ONCE PO Last administered on at 14:14; Start 04/29/18 at 09:30; Stop 04/29/18 at 09:41; Status DC Barium Sulfate (Liquid E-Z Paque) 355 ml 1X ONCE PO ; Start 04/29/18 at 09:30 ; Stop 04/29/18 at 09:41; Status DC Pantoprazole Sodium (PROTONIX VIAL for IV PUSH) 40 mg DAILYAC IVP Last administered on 04/30/18at 08:20; Start 04/29/18 at 10:30 Iohexol (Omnipaque 300 Mg/ml) 200 ml 1X ONCE PO ; Start 04/29/18 at 13:45; Stop 04/29/18 at 13:46; Status DC Potassium Chloride 40 meq/ Sodium Chloride 520 ml @ 130 mls/hr 1X ONCE IV Last administered on 04/30/18at 08:20; Start 04/30/18 at 08:30; Stop 04/30/18 at 12:29; Status DC Iohexol (Omnipaque 240 Mg/ml) 30 ml 1X ONCE PO Last administered on at 08:15; Start 04/30/18 at 08:15; Stop 04/30/18 at 08:16; Status DC Iohexol (Omnipaque 300 Mg/ml) 75 ml 1X ONCE IV Last administered on at 08:48; Start 04/30/18 at 08:15; Stop 04/30/18 at 08:16; Status DC Info (CONTRAST GIVEN -- Rx MONITORING) 1 each PRN DAILY PRN MC SEE COMMENTS; Start 04/30/18 at 08:15; Stop 05/02/18 at 08:14 Active Scripts Active Reported Cefuroxime (Cefuroxime Axetil) 500 Mg Tablet 1 Tab PO BID PRN Pepcid (Famotidine) 40 Mg Tablet 40 Mg PO DAILY Vital Signs Vital Signs Date Time Temp Pulse Resp B/P (MAP) Pulse Ox O2 Delivery O2 Flow Rate FiO2 04/30/18 11:00 98.7 64 16 98/61 (73) 99 Room Air 98.7 Labs Laboratory Tests Test 04/28/18 18:54 04/28/18 20:23 04/29/18 03:10 04/30/18 06:05 White Blood Count 13.3 x10^3/uL (4.0-11.0) 8.6 x10^3/uL (4.0-11.0) Red Blood Count 5.32 x10^6/uL (4.30-5.70) 3.92 x10^6/uL (4.30-5.70) Hemoglobin 14.9 g/dL (13.0-17.5) 11.2 g/dL (13.0-17.5) Hematocrit 44.0 % (39.0-53.0) 32.6 % (39.0-53.0) Mean Corpuscular Volume 83 fL (79-100) 83 fL (79-100) Mean Corpuscular Hemoglobin 28 pg (25-35) 29 pg (25-35) Mean Corpuscular Hemoglobin Concent 34 g/dL (31-37) 35 g/dL (31-37) Red Cell Distribution Width 12.6 % (11.5-14.5) 12.8 % (11.5-14.5) Platelet Count 208 x10^3/uL (140-400) 145 x10^3/uL (140-400) Neutrophils (%) (Auto) 77 % (31-73) 62 % (31-73) Lymphocytes (%) (Auto) 14 % (24-48) 31 % (24-48) Monocytes (%) (Auto) 9 % (0-9) 8 % (0-9) Eosinophils (%) (Auto) 0 % (0-3) 0 % (0-3) Basophils (%) (Auto) 0 % (0-3) 0 % (0-3) Neutrophils # (Auto) 10.2 x10^3uL (1.8-7.7) 5.3 x10^3uL (1.8-7.7) Lymphocytes # (Auto) 1.9 x10^3/uL (1.0-4.8) 2.6 x10^3/uL (1.0-4.8) Monocytes # (Auto) 1.2 x10^3/uL (0.0-1.1) 0.6 x10^3/uL (0.0-1.1) Eosinophils # (Auto) 0.0 x10^3/uL (0.0-0.7) 0.0 x10^3/uL (0.0-0.7) Basophils # (Auto) 0.0 x10^3/uL (0.0-0.2) 0.0 x10^3/uL (0.0-0.2) Sodium Level 130 mmol/L (136-145) 138 mmol/L (136-145) Potassium Level 3.4 mmol/L (3.5-5.1) 2.9 mmol/L (3.5-5.1) Chloride Level 93 mmol/L (98-107) 104 mmol/L (98-107) Carbon Dioxide Level 25 mmol/L (21-32) 25 mmol/L (21-32) Anion Gap 12 (6-14) 9 (6-14) Blood Urea Nitrogen 23 mg/dL (8-26) 20 mg/dL (8-26) Creatinine 1.3 mg/dL (0.7-1.3) 1.1 mg/dL (0.7-1.3) Estimated GFR (Cockcroft-Gault) 67.3 80.9 BUN/Creatinine Ratio 18 (6-20) 18 (6-20) Glucose Level 156 mg/dL (70-99) 113 mg/dL (70-99) Calcium Level 9.5 mg/dL (8.5-10.1) 8.3 mg/dL (8.5-10.1) Magnesium Level 2.3 mg/dL (1.8-2.4) Total Bilirubin 1.3 mg/dL (0.2-1.0) 0.9 mg/dL (0.2-1.0) Aspartate Amino Transf (AST/SGOT) 68 U/L (15-37) 36 U/L (15-37) Alanine Aminotransferase (ALT/SGPT) 38 U/L (16-63) 35 U/L (16-63) Alkaline Phosphatase 74 U/L (46-116) 44 U/L (46-116) Total Protein 8.9 g/dL (6.4-8.2) 6.3 g/dL (6.4-8.2) Albumin 4.8 g/dL (3.4-5.0) 3.2 g/dL (3.4-5.0) Albumin/Globulin Ratio 1.2 (1.0-1.7) 1.0 (1.0-1.7) Lipase 95 U/L (73-393) Urine Collection Type Void Urine Color Marie Urine Clarity Turbid Urine pH 6.5 Urine Specific [place] 1.020 Urine Protein 30 mg/dL (NEG-TRACE) Urine Glucose (UA) Negative mg/dL (NEG) Urine Ketones (Stick) Negative mg/dL (NEG) Urine Blood Trace (NEG) Urine Nitrite Negative (NEG) Urine Bilirubin Small (NEG) Urine Urobilinogen Dipstick 2.0 mg/dL (0.2 mg/dL) Urine Leukocyte Esterase Trace (NEG) Urine RBC 0 /HPF (0-2) Urine WBC 1-4 /HPF (0-4) Urine Squamous Epithelial Cells Occ /LPF Urine Amorphous Sediment Present /HPF Urine Bacteria Few /HPF (0-FEW) Urine Hyaline Casts Occasional /HPF Urine Mucus Slight /LPF Troponin I Quantitative < 0.017 ng/mL (0.000-0.055) HIV (1&2) Antibody Screen Nonreactive (Nonreactive) Laboratory Tests Test 04/30/18 06:05 White Blood Count 8.6 x10^3/uL (4.0-11.0) Red Blood Count 3.92 x10^6/uL (4.30-5.70) Hemoglobin 11.2 g/dL (13.0-17.5) Hematocrit 32.6 % (39.0-53.0) Mean Corpuscular Volume 83 fL (79-100) Mean Corpuscular Hemoglobin 29 pg (25-35) Mean Corpuscular Hemoglobin Concent 35 g/dL (31-37) Red Cell Distribution Width 12.8 % (11.5-14.5) Platelet Count 145 x10^3/uL (140-400) Neutrophils (%) (Auto) 62 % (31-73) Lymphocytes (%) (Auto) 31 % (24-48) Monocytes (%) (Auto) 8 % (0-9) Eosinophils (%) (Auto) 0 % (0-3) Basophils (%) (Auto) 0 % (0-3) Neutrophils # (Auto) 5.3 x10^3uL (1.8-7.7) Lymphocytes # (Auto) 2.6 x10^3/uL (1.0-4.8) Monocytes # (Auto) 0.6 x10^3/uL (0.0-1.1) Eosinophils # (Auto) 0.0 x10^3/uL (0.0-0.7) Basophils # (Auto) 0.0 x10^3/uL (0.0-0.2) Sodium Level 138 mmol/L (136-145) Potassium Level 2.9 mmol/L (3.5-5.1) Chloride Level 104 mmol/L (98-107) Carbon Dioxide Level 25 mmol/L (21-32) Anion Gap 9 (6-14) Blood Urea Nitrogen 20 mg/dL (8-26) Creatinine 1.1 mg/dL (0.7-1.3) Estimated GFR (Cockcroft-Gault) 80.9 BUN/Creatinine Ratio 18 (6-20) Glucose Level 113 mg/dL (70-99) Calcium Level 8.3 mg/dL (8.5-10.1) Total Bilirubin 0.9 mg/dL (0.2-1.0) Aspartate Amino Transf (AST/SGOT) 36 U/L (15-37) Alanine Aminotransferase (ALT/SGPT) 35 U/L (16-63) Alkaline Phosphatase 44 U/L (46-116) Total Protein 6.3 g/dL (6.4-8.2) Albumin 3.2 g/dL (3.4-5.0) Albumin/Globulin Ratio 1.0 (1.0-1.7) Allergies Allergies Coded Allergies Type Severity Reaction Last Updated Verified No Known Drug Allergies 04/28/18 No Disposition/Orders: D/C to Home Patient Instructions D/C PLANNING 33 MIN ANTONIO SALCEDO MD Apr 30, 2018 14:40
--- NOTE | 2018-04-30 14:41 | DISCH ---
DISCHARGE INSTRUCTIONS Condition on Discharge Condition on Discharge: Guarded Activity After Discharge Activity Instructions for Disc: Resume previous activity, Activity as tolerated Lifting Instructions after Dis: No heavy lifting, No pulling or pushing Driving Instructions after Dis: Do not drive Diet after Discharge Diet after Discharge: GI Soft Checks after Discharge Checks after discharge: Check blood press - daily DC Comment: [place] diet, low acidity Contacting the DR. after DC Call your doctor for: If your condition worsens Follow-Up Follow Up With: GI doctor in 2 weeks or if symptoms worsen. Treatment/Equipment after DC Adaptive Equipment Issued: None Warfarin Follow-Up Warfarin Follow UP: SEE PCP IN 2 DAYS ANTONIO SALCEDO MD Apr 30, 2018 14:40
== END 2018-04-30 15:00 | disposition home or self-care (01) | DRG 199 ==
LOC: ER 18:28 → EDBD 18:28 → CVICU 22:25
PROVIDERS: ADMIT Internal Medicine; ATTEND Internal Medicine
DX: J98.2 Interstitial emphysema (principal); K22.3 Perforation of esophagus; E87.1 Hypo-osmolality and hyponatremia; J93.83 Other pneumothorax; R11.2 Nausea with vomiting, unspecified; F17.200 Nicotine dependence, unspecified, uncomplicated; Z91.19 Patient's noncompliance with other medical treatment and regimen
CPT/HCPCS: 36415; 70450; 71045; 71250; 71260; 74177; 74220; 80053; 81001; 83690; 83735; 84484; 85025; 86703; 87086; 90471; 90756; 93005; 96374; 96375; C9113; J1100; J1885; J2405; J2543; J3010; J3490; J7030; J7040; Q9966; Q9967; 99285-25; Q2035